=== PATIENT | female | born 1990 | race American Indian/Alaskan Native ===

== ENCOUNTER 2017-08-13 21:31 | Emergency (ER) | payer SELFPAY | END 2017-08-13 22:50 | disposition left against medical advice (07) | LOC: ED 21:31 | DX: R10.9 Unspecified abdominal pain (principal); Z53.21 Procedure and treatment not carried out due to patient leaving prior to being seen by health care provider ==

== ENCOUNTER 2017-10-11 09:38 | Emergency (ER) | payer SELFPAY ==
[2017-10-11 10:34] LABS: Bilirubin,Urine NEG (Negative); Blood,Urine NEG (Negative); Color,Urine Yellow (Yellow); Mucus,Urine FEW /HPF; Protein,Urine <15 mg/dL mg/dL (Negative); Urobilinogen,Urine < 2.0 mg/dL (<2.0); WBC,Urine < 1.0 /HPF (0.0-6.0)
[2017-10-11 11:01] LABS: Basophils % (Auto) 0.6 % (0.0-1.8); Eosinophils # (Auto) 0.1 K/mm3 (0.0-0.4); Eosinophils % (Auto) 1.4 % (0.0-4.3); Hematocrit 41.4 % (30.3-42.9); Hemoglobin 13.7 gm/dl (10.1-14.3); Lymphocytes # (Auto) 1.5 K/mm3 (1.2-5.4); Lymphocytes % (Auto) 25.8 % (13.4-35.0); Mean Corpuscular HGB Conc 33 % (30-34); Mean Corpuscular Hemoglobin 30 pg (28-32); Mean Corpuscular Volume 90 fl (79-97); Monocytes # (Auto) 0.3 K/mm3 (0.0-0.8); Monocytes % (Auto) 5.9 % (0.0-7.3); Platelet Count 148 K/mm3 (140-440); Red Cell Distribution Width 13.1 % (13.2-15.2)
[2017-10-11 11:21] LABS: BUN/Creatinine Ratio 16; Blood Urea Nitrogen 8 mg/dL (7-17); Calcium 9.1 mg/dL (8.4-10.2); Hemolysis Index 53
[2017-10-11] MEDS ORDERED: ZOFRAN ODT ONE (12:59)
[2017-10-11] MEDS ORDERED: ZOFRAN ODT PO ONE (13:02)
--- NOTE | 2017-10-11 13:07 | Ultrasound Report ---
ULTRASOUND OB LESS THAN 14 WEEKS FETUS ULTRASOUND OB TRANSVAGINAL HISTORY: Abdominal pain during . COMPARISON: None. TECHNIQUE: Transabdominal and transvaginal ultrasound with color doppler interrogation. FINDINGS: Uterus: 9 x 5 x 7 cm. No uterine masses appreciated. Normal cervix. Endometrium: An intrauterine gestational sac is identified containing a small pole and yolk sac. heart rate measures 123 beats per minute. Estimated age on ultrasound as 7 weeks, 0 days. Right ovary: Within normal limits. Left ovary: Within normal limits. Probable corpus luteum cyst measuring 1.7 cm. No pelvic fluid or mass is identified. Normal color doppler interrogation. IMPRESSION: Viable single intrauterine as described. No acute abnormality is appreciated.
--- NOTE | 2017-10-11 13:38 | Emergency Department Report ---
HPI - General Chief Complaint: Abdominal Pain Time Seen by Provider: 10/11/17 13:30 - HPI HPI: 27-year-old -[place] female presents to the ED with nausea, vomiting, abdominal discomfort which has since resolved. The patient was diagnosed with a miscarriage in the second week of August, she also missed a cycle in September. Patient did not take any tests at home. She is feeling like she is again.. ED Past Medical Hx - Past Medical History Previous Medical History?: Yes Hx Asthma: Yes - Surgical History Past Surgical History?: Yes Hx Breast Surgery: Yes (reduction) Additional Surgical History: - Social History Smoking Status: Former Smoker Substance Use Type: Alcohol - Medications Home Medications: Home Medications Medication Instructions Recorded Confirmed Last Taken Type Albuterol Sulfate [Proventil Hfa] 6.7 gm IH 4XD #1 hfa.aer.ad 10/11/17 Unknown Rx Doxylamine Succinate/Vit B6 1 each PO QACHS 30 Days #60 10/11/17 Unknown Rx [Carola Byrd 10-10 mg Tablet] tablet. ED Review of Systems ROS: Stated complaint: ABD PAIN Other details as noted in HPI Comment: All other systems reviewed and negative Cardiovascular: denies: dyspnea on exertion Endocrine: denies: excessive sweating Gastrointestinal: nausea, vomiting Physical Exam - Physical Exam Vital Signs: Vital Signs 10/11/17 09:53 Temperature 98.7 F Pulse Rate 84 Respiratory 16 Rate Blood Pressure 122/43 O2 Sat by Pulse 100 Oximetry Physical Exam: - Physical Exam Physical Exam: - General Limitations: No Limitations General appearance: alert, in no apparent distress, obese - Head Head exam: Present: atraumatic, normocephalic - Eye Eye exam: Present: normal appearance - ENT ENT exam: Present: mucous membranes moist - Neck Neck exam: Present: normal inspection - Respiratory Respiratory exam: Present: normal lung sounds bilaterally. Absent: respiratory distress - Cardiovascular Cardiovascular Exam: Present: normal rhythm, tachycardia. Absent: systolic murmur, diastolic murmur, rubs, gallop - GI/Abdominal GI/Abdominal exam: Present: soft, normal bowel sounds - Extremities Exam Extremities exam: Present: normal inspection - Back Exam Back exam: Present: normal inspection - Neurological Exam Neurological exam: Present: alert, oriented X3 - Psychiatric Psychiatric exam: normal affect and mood - Skin Skin exam: Present: warm, dry, intact, normal color. Absent: rash except : Patient refused ED Course Vital Signs 10/11/17 09:53 Temperature 98.7 F Pulse Rate 84 Respiratory 16 Rate Blood Pressure 122/43 O2 Sat by Pulse 100 Oximetry - Reevaluation(s) Reevaluation #1: 10/11/17 19:13 Patient was advised to follow up with [facility], states that she has any vaginal bleeding, severe abdominal pain to come back to ED. Patient states history of asthma and requests a prescription for her inhalers. ED Medical Decision Making - Lab Data Result diagrams: 10/11/17 10:39 10/11/17 10:39 Critical care attestation.: If time is entered above; I have spent that time in minutes in the direct care of this critically ill patient, excluding procedure time. ED Disposition Clinical Impression: Morning sickness Qualifiers: Weeks of gestation: less than 8 weeks Qualified Code(s): Z3A.01 - Less than 8 weeks gestation of Disposition: DC-01 TO HOME OR SELFCARE Is pt being admited?: No Does the pt Need Aspirin: No Condition: Stable Instructions: Morning Sickness (ED), (ED) Prescriptions: Albuterol Sulfate [Proventil Hfa] 6.7 gm IH 4XD #1 hfa.aer.ad Doxylamine Succinate/Vit B6 [Carola Byrd 10-10 mg Tablet] 1 each PO QACHS 30 Days #60 tablet. Referrals: PRIMARY CAREMD [Primary Care Provider] - 3-5 Days LATOYA WILLIS MD [Staff Physician] - 3-5 Days
[2017-10-11 13:53] VITALS: BP 122/54
== END 2017-10-11 13:51 | disposition home or self-care (01) ==
LOC: ED 09:38
DX: O21.8 Other vomiting complicating pregnancy (principal); O26.891 Other specified pregnancy related conditions, first trimester; R10.2 Pelvic and perineal pain; O99.511 Diseases of the respiratory system complicating pregnancy, first trimester; J45.909 Unspecified asthma, uncomplicated; Z3A.01 Less than 8 weeks gestation of pregnancy; Z87.891 Personal history of nicotine dependence; Z88.1 Allergy status to other antibiotic agents; Z88.8 Allergy status to other drugs, medicaments and biological substances
CPT/HCPCS: 36415; 76801; 76817; 80048; 81001; 84702; 85025; 99284; Q0162

== ENCOUNTER 2018-01-16 15:13 | Emergency (ER) | payer MEDICAID ==
[~2018-01-16 15:13] MED LIST: ATIVAN IM ONE
[2018-01-16] MEDS ORDERED: ATIVAN IV ONE ×2 (15:15→15:40)
[2018-01-16] MEDS ORDERED: KEPPRA 1,000 MG/NS 0.75% 100ML 1,000 MG/100 ML BAG IV ONE ×2 (15:31→16:03)
[2018-01-16] MEDS ORDERED: ATIVAN ONE ×4 (15:31→15:42)
[2018-01-16] MEDS ORDERED: VERSED IV NR (15:43)
[2018-01-16] MEDS ORDERED: AMIDATE IV ONE ×2 (15:45→16:05)
[2018-01-16] MEDS ORDERED: ZEMURON IV ONE ×2 (15:45→16:05)
[2018-01-16] MEDS ORDERED: VERSED IV ONE ×2 (15:45→18:20)
[2018-01-16] MEDS ORDERED: MAGNESIUM SULFATE 4GM/100ML 4 GM/100 ML BAG IV ONE (16:00)
[2018-01-16] MEDS ORDERED: MAGNESIUM SULFATE 40GM/1000ML 40 GM/1,000 ML BAG IV SCH (16:00)
[2018-01-16] MEDS ORDERED: ARTIFICIAL TEARS OPHTH OINT OU PRN (16:05)
[2018-01-16] MEDS ORDERED: ATIVAN IV PRN (16:05)
[2018-01-16] MEDS ORDERED: VASELINE LIP THERAPY TP PRN (16:05)
--- NOTE | 2018-01-16 16:16 | Emergency Department Report ---
ED General Adult HPI - General Chief complaint: Seizure Stated complaint: SEIZURE Time Seen by Provider: 01/16/18 15:59 Source: patient, family, RN notes reviewed, old records reviewed Limitations: Altered Mental Status - History of Present Illness Initial comments: This is a 27-year-old female who is unknown to this provider previously. Patient is approximately 20 weeks and 5 days . History is obtained by speaking to the patient's , who is not initially present during her initial resuscitation, and by review of her old medical records. Patient presented to the ER with a complaint of seizure. She then had a seizure in the triage snow. She was immediately brought back. She was placed in room 3 in the adult emergency room, and was placed on oxygen, and her head was turned to the left. She was actively suctioned, and IV access was established in the right external jugular vein. Patient was given multiple rounds of Ativan to abort her seizure. Patient continued to seize, continued to have left eye deviation, and generalized body shaking. She was also given 1 g of Keppra. Patient continued to seize, and had stereotypical myoclonic activity, and was in the status epilepticus pathway. Given this, the patient was intubated for airway protection. After this, an emergent CT scan of the brain is ordered to exclude intracranial hemorrhage. Patient loaded with 4 g of magnesium sulfate, and started empirically on a magnesium sulfate drip. I then discussed the case with the patient's , and he gave verbal consent for treatment is appropriate, and also authorized transfer to an appropriate facility but has continuous EEG monitoring/neuro critical care. I contacted our [facility] physician on-call, Dr. Hampton, who recommended magnesium sulfate, and supportive care and transfer for definitive management. I then contacted [facility], and discussed the case with neuro critical care physician Dr. Yadav, who accepted the patient as a transfer. She recommended an additional 1 g of Keppra. -: unknown Radiation: other (see hpi) Quality: other (see hpi) Consistency: other (see hpi) Improves with: other (see hpi) Worsens with: other (see hpi) Associated Symptoms: other (see hpi) - Related Data Home Medications Medication Instructions Recorded Confirmed Last Taken Albuterol Sulfate [Ventolin HFA] 1 - 2 puff IH Q6H PRN 01/16/18 01/16/18 Unknown Ferrous Sulfate [Iron] 325 mg PO DAILY 01/16/18 01/16/18 Unknown Metoclopramide [Reglan] 10 mg PO ACHS 01/16/18 01/16/18 Unknown Ondansetron [Zofran TAB] 4 mg PO Q8HR PRN 01/16/18 01/16/18 Unknown Allergies Allergy/AdvReac Type Severity Reaction Status Date / Time ceftriaxone [From Rocephin] Allergy Swelling Verified 01/16/18 15:24 morphine Allergy Shortness Verified 01/16/18 15:34 of Breath turbutaline Allergy Shortness Uncoded 10/11/17 09:53 of Breath ED Review of Systems ROS: Stated complaint: SEIZURE Other details as noted in HPI Comment: Unobtainable due to pts medical conditions ED Past Medical Hx - Past Medical History Hx Asthma: Yes - Surgical History Hx Breast Surgery: Yes (reduction) Additional Surgical History: - Social History Smoking Status: Never Smoker Substance Use Type: None - Medications Home Medications: Home Medications Medication Instructions Recorded Confirmed Last Taken Type Albuterol Sulfate [Ventolin HFA] 1 - 2 puff IH Q6H PRN 01/16/18 01/16/18 Unknown History Ferrous Sulfate [Iron] 325 mg PO DAILY 01/16/18 01/16/18 Unknown History Metoclopramide [Reglan] 10 mg PO ACHS 01/16/18 01/16/18 Unknown History Ondansetron [Zofran TAB] 4 mg PO Q8HR PRN 01/16/18 01/16/18 Unknown History ED Physical Exam - General Limitations: Altered Mental Status General appearance: obtunded - Head Head exam: Present: atraumatic, normocephalic - ENT ENT exam: Present: normal exam, normal orophraynx, TM's normal bilaterally, normal external ear exam - Neck Neck exam: Present: normal inspection, full ROM. Absent: tenderness, meningismus - Respiratory Respiratory exam: Present: normal lung sounds bilaterally. Absent: respiratory distress, wheezes, rales, rhonchi, stridor - Cardiovascular Cardiovascular Exam: Present: normal rhythm, tachycardia, normal heart sounds - GI/Abdominal GI/Abdominal exam: Present: soft, normal bowel sounds, other (there is no abdominal tenderness. The uterus is nontender. It is consistent for dates.). Absent: distended, tenderness, rebound, rigid, pulsatile mass - External exam: Present: normal external exam, other (escorted by nurse Gisselle Workman) - Extremities Exam Extremities exam: Present: normal inspection, normal capillary refill. Absent: tenderness, pedal edema, joint swelling, calf tenderness - Back Exam Back exam: Present: normal inspection, full ROM. Absent: tenderness, CVA tenderness (R), paraspinal tenderness, vertebral tenderness - Neurological Exam Neurological exam: Present: altered, other (prior to intubation, the patient is moving 4 extremities, and making jerking motions and stereotyped sounds. Her eyes have a tonic left-sided gaze preference.) - Psychiatric Psychiatric exam: Present: anxious - Skin Skin exam: Present: dry ED Course Vital Signs 01/16/18 01/16/18 15:25 16:05 Temperature 99.2 F Pulse Rate 78 56 L Respiratory 18 Rate Blood Pressure 114/74 126/78 O2 Sat by Pulse 100 100 Oximetry - EJ/Peripheral Line Neck R Time Out Performed: Yes Indications: multiple IV sites needed Skin Cleansed in Sterile Fashion: Yes Size: 20 Dressing Placed: Tegaderm Patient Tolerated Procedure: other Additional Comments: Hematoma was formed, and resolved with pressure. - Intubation Time Out Performed: Yes Sedative: Etomidate Mg Given: 20 Paralytic: Rocuronium Mg Given: 100 Laryngoscope: fiberoptic video scope Size: 3 ET Tube Size: 7.5 Tube Secured Depth (cm): 23 Tube Secured Location: teeth Tube Placement Confirmation: visualized tube passing t, equal breath sounds bilat, no breath sounds over epi, confirmation by capnometr Patient Tolerated Procedure: well Intubation Complications: none Additional Comments: Patient is placed on a nasal cannula at 15 L/m. She receives [id number] ventilation. Towel rolls are placed underneath the patient's back, and the ear is aligned to the sternal notch. Using video laryngoscopy, a 7.5 endotracheal tube was introduced into the oropharynx and hypopharynx with direct visualization of the true vocal cords. The tube was passed with ease without difficulty, and tube placement is confirmed by direct visualization, capnography, is ago exam, condensation on the endotracheal tube. Post intubation x-ray demonstrates placement of the tube at the level of the clavicles, the tube was subsequently advanced 3 cm. ED Medical Decision Making - Lab Data Result diagrams: 01/16/18 16:25 01/16/18 16:25 Vital Signs 01/16/18 01/16/18 15:25 16:05 Temperature 99.2 F Pulse Rate 78 56 L Respiratory 18 Rate Blood Pressure 114/74 126/78 O2 Sat by Pulse 100 100 Oximetry Lab Results 01/16/18 01/16/18 01/16/18 Range/Units 16:25 16:25 16:25 WBC 8.0 (4.5-11.0) K/mm3 RBC 3.81 (3.65-5.03) M/mm3 Hgb 11.9 (10.1-14.3) gm/dl Hct 34.8 (30.3-42.9) % MCV 91 (79-97) fl MCH 31 (28-32) pg MCHC 34 (30-34) % RDW 13.1 L (13.2-15.2) % Plt Count 168 (140-440) K/mm3 Lymph % (Auto) 27.1 (13.4-35.0) % [place] % (Auto) 6.2 (0.0-7.3) % Eos % (Auto) 1.5 (0.0-4.3) % Baso % (Auto) 0.4 (0.0-1.8) % Lymph # 2.2 (1.2-5.4) K/mm3 Williamson # 0.5 (0.0-0.8) K/mm3 Eos # 0.1 (0.0-0.4) K/mm3 Baso # 0.0 (0.0-0.1) K/mm3 Seg Neutrophils % 64.8 (40.0-70.0) % Seg Neutrophils # 5.2 (1.8-7.7) K/mm3 Sodium 136 L (137-145) mmol/L Potassium 3.0 L (3.6-5.0) mmol/L Chloride 101.0 (98-107) mmol/L Carbon Dioxide 21 L (22-30) mmol/L Anion Gap 17 mmol/L BUN 4 L (7-17) mg/dL Creatinine 0.4 L (0.7-1.2) mg/dL Estimated GFR > 60 ml/min BUN/Creatinine Ratio 10 % Glucose 88 (65-100) mg/dL POC Glucose (70-105) Calcium 8.4 (8.4-10.2) mg/dL Total Bilirubin 0.30 (0.1-1.2) mg/dL AST 14 (5-40) units/L ALT 6 L (7-56) units/L Alkaline Phosphatase 64 (35-129) units/L Total Protein 6.5 (6.3-8.2) g/dL Albumin 3.6 L (3.9-5) g/dL Albumin/Globulin Ratio 1.2 % HCG, Quant (0-4) mIU/mL Urine Color (Yellow) Urine Turbidity (Clear) Urine pH (5.0-7.0) Ur Specific [place] (1.003-1.030) Urine Protein (Negative) mg/dL Urine Glucose (UA) (Negative) mg/dL Urine Ketones (Negative) mg/dL Urine Blood (Negative) Urine Nitrite (Negative) Urine Bilirubin (Negative) Urine Urobilinogen (<2.0) mg/dL Ur Leukocyte Esterase (Negative) Urine WBC (Auto) (0.0-6.0) /HPF Urine RBC (Auto) (0.0-6.0) /HPF U Epithel Cells (Auto) (0-13.0) /HPF Urine Bacteria (Auto) (Negative) /HPF Urine Mucus /HPF Urine HCG, Qual (Negative) Salicylates < 0.3 L (2.8-20.0) mg/dL Urine Opiates Screen Urine Methadone Screen Acetaminophen (10.0-30.0) ug/mL Ur Barbiturates Screen Ur Phencyclidine Scrn Ur Amphetamines Screen U Benzodiazepines Scrn Urine Cocaine Screen U Marijuana (THC) Screen Drugs of Abuse Note Plasma/Serum Alcohol (0-0.07) % 01/16/18 01/16/18 01/16/18 Range/Units 16:25 16:25 16:25 WBC (4.5-11.0) K/mm3 RBC (3.65-5.03) M/mm3 Hgb (10.1-14.3) gm/dl Hct (30.3-42.9) % MCV (79-97) fl MCH (28-32) pg MCHC (30-34) % RDW (13.2-15.2) % Plt Count (140-440) K/mm3 Lymph % (Auto) (13.4-35.0) % Williamson % (Auto) (0.0-7.3) % Eos % (Auto) (0.0-4.3) % Baso % (Auto) (0.0-1.8) % Lymph # (1.2-5.4) K/mm3 Williamson # (0.0-0.8) K/mm3 Eos # (0.0-0.4) K/mm3 Baso # (0.0-0.1) K/mm3 Seg Neutrophils % (40.0-70.0) % Seg Neutrophils # (1.8-7.7) K/mm3 Sodium (137-145) mmol/L Potassium (3.6-5.0) mmol/L Chloride (98-107) mmol/L Carbon Dioxide (22-30) mmol/L Anion Gap mmol/L BUN (7-17) mg/dL Creatinine (0.7-1.2) mg/dL Estimated GFR ml/min BUN/Creatinine Ratio % Glucose (65-100) mg/dL POC Glucose (70-105) Calcium (8.4-10.2) mg/dL Total Bilirubin (0.1-1.2) mg/dL AST (5-40) units/L ALT (7-56) units/L Alkaline Phosphatase (35-129) units/L Total Protein (6.3-8.2) g/dL Albumin (3.9-5) g/dL Albumin/Globulin Ratio % HCG, Quant 9350 H (0-4) mIU/mL Urine Color (Yellow) Urine Turbidity (Clear) Urine pH (5.0-7.0) Ur Specific [place] (1.003-1.030) Urine Protein (Negative) mg/dL Urine Glucose (UA) (Negative) mg/dL Urine Ketones (Negative) mg/dL Urine Blood (Negative) Urine Nitrite (Negative) Urine Bilirubin (Negative) Urine Urobilinogen (<2.0) mg/dL Ur Leukocyte Esterase (Negative) Urine WBC (Auto) (0.0-6.0) /HPF Urine RBC (Auto) (0.0-6.0) /HPF U Epithel Cells (Auto) (0-13.0) /HPF Urine Bacteria (Auto) (Negative) /HPF Urine Mucus /HPF Urine HCG, Qual (Negative) Salicylates (2.8-20.0) mg/dL Urine Opiates Screen Urine Methadone Screen Acetaminophen < 5.0 L (10.0-30.0) ug/mL Ur Barbiturates Screen Ur Phencyclidine Scrn Ur Amphetamines Screen U Benzodiazepines Scrn Urine Cocaine Screen U Marijuana (THC) Screen Drugs of Abuse Note Plasma/Serum Alcohol < 0.01 (0-0.07) % 01/16/18 01/16/18 01/16/18 Range/Units 16:34 16:34 16:52 WBC (4.5-11.0) K/mm3 RBC (3.65-5.03) M/mm3 Hgb (10.1-14.3) gm/dl Hct (30.3-42.9) % MCV (79-97) fl MCH (28-32) pg MCHC (30-34) % RDW (13.2-15.2) % Plt Count (140-440) K/mm3 Lymph % (Auto) (13.4-35.0) % Williamson % (Auto) (0.0-7.3) % Eos % (Auto) (0.0-4.3) % Baso % (Auto) (0.0-1.8) % Lymph # (1.2-5.4) K/mm3 [place] # (0.0-0.8) K/mm3 Eos # (0.0-0.4) K/mm3 Baso # (0.0-0.1) K/mm3 Seg Neutrophils % (40.0-70.0) % Seg Neutrophils # (1.8-7.7) K/mm3 Sodium (137-145) mmol/L Potassium (3.6-5.0) mmol/L Chloride (98-107) mmol/L Carbon Dioxide (22-30) mmol/L Anion Gap mmol/L BUN (7-17) mg/dL Creatinine (0.7-1.2) mg/dL Estimated GFR ml/min BUN/Creatinine Ratio % Glucose (65-100) mg/dL POC Glucose 85 (70-105) Calcium (8.4-10.2) mg/dL Total Bilirubin (0.1-1.2) mg/dL AST (5-40) units/L ALT (7-56) units/L Alkaline Phosphatase (35-129) units/L Total Protein (6.3-8.2) g/dL Albumin (3.9-5) g/dL Albumin/Globulin Ratio % HCG, Quant (0-4) mIU/mL Urine Color Yellow (Yellow) Urine Turbidity Clear (Clear) Urine pH 6.0 (5.0-7.0) Ur Specific [place] 1.020 (1.003-1.030) Urine Protein 30 mg/dl (Negative) mg/dL Urine Glucose (UA) Neg (Negative) mg/dL Urine Ketones 80 (Negative) mg/dL Urine Blood Neg (Negative) Urine Nitrite Neg (Negative) Urine Bilirubin Neg (Negative) Urine Urobilinogen < 2.0 (<2.0) mg/dL Ur Leukocyte Esterase Neg (Negative) Urine WBC (Auto) 1.0 (0.0-6.0) /HPF Urine RBC (Auto) 2.0 (0.0-6.0) /HPF U Epithel Cells (Auto) 3.0 (0-13.0) /HPF Urine Bacteria (Auto) 1+ (Negative) /HPF Urine Mucus 3+ /HPF Urine HCG, Qual Positive A (Negative) Salicylates (2.8-20.0) mg/dL Urine Opiates Screen Presumptive negative Urine Methadone Screen Presumptive negative Acetaminophen (10.0-30.0) ug/mL Ur Barbiturates Screen Presumptive negative Ur Phencyclidine Scrn Presumptive negative Ur Amphetamines Screen Presumptive negative U Benzodiazepines Scrn Presumptive positive Urine Cocaine Screen Presumptive negative U Marijuana (THC) Screen Presumptive positive Drugs of Abuse Note Disclamer Plasma/Serum Alcohol (0-0.07) % - Radiology Data Radiology results: report reviewed, image reviewed Noncontrast CT scan of the brain is negative for acute disease. X-ray of the chest is negative for acute disease. Critical Care Time: Yes Critical care time in (mins) excluding proc time.: 60 Critical care attestation.: If time is entered above; I have spent that time in minutes in the direct care of this critically ill patient, excluding procedure time. ED Disposition Clinical Impression: , Status epilepticus, Hypokalemia Disposition: DC/ [facility] IP Is pt being admited?: No Does the pt Need Aspirin: No Condition: Critical Referrals: PRIMARY CARE, [Primary Care Provider] - 3-5 Days
--- NOTE | 2018-01-16 16:21 | Event Note ---
Date: 01/16/18 s/w Dr. Ibrahim, this is a patient with persistent seizures, intubated , ? eclampsia. Agree with MGSo4 4gm bolus, may give total 6gm bolus and 2gm and transfer to a facility to manage her seizures
--- NOTE | 2018-01-16 16:32 | XRay Report ---
FINAL REPORT EXAM: XR CHEST 1V AP HISTORY: s/p intubation TECHNIQUE: Frontal portable examination of the chest PRIORS: None FINDINGS: There is no visible pulmonary consolidation, pleural effusion, or pneumothorax. Cardiac silhouette size is normal without vascular congestion. No visible acute displaced fracture in the regional skeleton. Nonspecific prominence of gas, and possibly distention, in the visible portion of the stomach. IMPRESSION: No acute cardiopulmonary disease in the visualized chest An endotracheal tube is in place in the region of the trachea with distal tip projecting approximately 4.0 cm above the region of the kirsten. Distal tip is projected at the level of the thoracic inlet.
[2018-01-16 16:44] LABS: Basophils % (Auto) 0.4 % (0.0-1.8); Eosinophils # (Auto) 0.1 K/mm3 (0.0-0.4); Eosinophils % (Auto) 1.5 % (0.0-4.3); Hematocrit 34.8 % (30.3-42.9); Hemoglobin 11.9 gm/dl (10.1-14.3); Lymphocytes # (Auto) 2.2 K/mm3 (1.2-5.4); Lymphocytes % (Auto) 27.1 % (13.4-35.0); Mean Corpuscular HGB Conc 34 % (30-34); Mean Corpuscular Hemoglobin 31 pg (28-32); Mean Corpuscular Volume 91 fl (79-97); Monocytes # (Auto) 0.5 K/mm3 (0.0-0.8); Monocytes % (Auto) 6.2 % (0.0-7.3); Platelet Count 168 K/mm3 (140-440); Red Blood Count 3.81 M/mm3 (3.65-5.03); Red Cell Distribution Width 13.1 % (13.2-15.2)
[2018-01-16] MEDS ORDERED: fentaNYL DRIP Premix 2,000 MCG/100 ML BAG IV SCH (17:00)
[2018-01-16] MEDS ORDERED: NACL 0.9% 500 ML IV SCH (17:00)
[2018-01-16 17:03] LABS: Alanine Aminotransferase 6 units/L (7-56); Albumin 3.6 g/dL (3.9-5); BUN/Creatinine Ratio 10; Blood Urea Nitrogen 4 mg/dL (7-17); Calcium 8.4 mg/dL (8.4-10.2); Hemolysis Index 19
[2018-01-16 17:17] LABS: Bacteria,Urine 1+ /HPF (Negative); Bilirubin,Urine NEG (Negative); Blood,Urine NEG (Negative); Color,Urine Yellow (Yellow); HCG Qualitative,Urine Positive (Negative); Mucus,Urine 3+ /HPF; Urobilinogen,Urine < 2.0 mg/dL (<2.0)
--- NOTE | 2018-01-16 17:22 | Cat Scan Report ---
FINAL REPORT EXAM: CT HEAD/BRAIN WO CON HISTORY: Seizure TECHNIQUE: CT examination of the head without IV contrast PRIORS: None. FINDINGS: Endotracheal tube in place. Nonspecific small fluid level left maxillary sinus. Bone windows demonstrate no acute fracture. There is ventricular and sulcal prominence possibly from mild superior cerebrocortical atrophy. The brain contains no mass, mass effect, hemorrhage, or acute infarct. There is no extra-axial intracranial bleed, brain bleed, or midline shift. IMPRESSION: No acute CVA, intracranial bleed, or brain mass Left maxillary sinus small fluid level may be related intubation. Differential includes acute left maxillary sinusitis
[2018-01-16] MEDS: KEPPRA 1,000 MG/NS 0.75% 100ML 1,000 MG/100 ML BAG IV ONE ×2 (17:23→18:12)
[2018-01-16 17:25] LABS: Amphetamine Screen,Urine PRESUMPTIVE NEGATIVE; Cocaine Screen,Urine PRESUMPTIVE NEGATIVE; Methadone Screen,Urine PRESUMPTIVE NEGATIVE; Opiate Screen,Urine PRESUMPTIVE NEGATIVE
[2018-01-16 17:41] LABS: Benzodiazepines Screen,Urine PRESUMPTIVE POSITIVE; Cannabinoid Screen,Urine PRESUMPTIVE POSITIVE
[2018-01-16] MEDS: KCL 10MEQ/100ML 10 MEQ/100 ML BAG IV SCH ×3 (19:06→21:11)
[2018-01-16] MEDS ORDERED: ATIVAN 100 MG in NACL 0.9% 50 ML, VIAFLEX EMPTY CONTAINER 0 ML IV SCH (20:00)
[2018-01-16 21:16] VITALS: BP 95/50
== END 2018-01-16 21:18 | disposition short-term general hospital (02) ==
LOC: ED 15:13
DX: O99.352 Diseases of the nervous system complicating pregnancy, second trimester (principal); G40.901 Epilepsy, unspecified, not intractable, with status epilepticus; O99.512 Diseases of the respiratory system complicating pregnancy, second trimester; J45.909 Unspecified asthma, uncomplicated; O26.892 Other specified pregnancy related conditions, second trimester; E87.6 Hypokalemia; Z88.1 Allergy status to other antibiotic agents; Z88.6 Allergy status to analgesic agent; Z88.5 Allergy status to narcotic agent; Z3A.20 20 weeks gestation of pregnancy
CPT/HCPCS: 31500; 36415; 36569; 70450; 71045; 80053; 80307; 81001; 81025; 82803; 82962; 84702; 85025; 87070; 87205; 93005; 93010; 96365; 96366; 96368; 96372; 96375; 96376; 99291; G0480; J1953; J2060; J2250; J3010; J3475; J3480; 80320; 94002

== ENCOUNTER 2018-01-20 10:07 | Emergency (ER) | payer MEDICAID ==
[2018-01-20] MEDS ORDERED: ATIVAN IV ONE ×3 (10:09→12:48)
[2018-01-20] MEDS ORDERED: MAGNESIUM SULFATE 40GM/1000ML 40 GM/1,000 ML BAG IV ONE (10:10)
[2018-01-20] MEDS ORDERED: KEPPRA 1,000 MG/NS 0.75% 100ML 1,000 MG/100 ML BAG IV ONE (10:16)
[2018-01-20] MEDS ORDERED: MAGNESIUM SULFATE 4GM/100ML 4 GM/100 ML BAG IV SCH (11:00)
[2018-01-20 11:22] LABS: Basophils % (Auto) 0.2 % (0.0-1.8); Eosinophils # (Auto) 0.1 K/mm3 (0.0-0.4); Eosinophils % (Auto) 1.1 % (0.0-4.3); Hematocrit 31.7 % (30.3-42.9); Lymphocytes % (Auto) 17.9 % (13.4-35.0); Mean Corpuscular HGB Conc 35 % (30-34); Mean Corpuscular Hemoglobin 32 pg (28-32); Mean Corpuscular Volume 91 fl (79-97); Monocytes # (Auto) 0.3 K/mm3 (0.0-0.8); Monocytes % (Auto) 5.7 % (0.0-7.3); Platelet Count 154 K/mm3 (140-440); Red Blood Count 3.48 M/mm3 (3.65-5.03); Red Cell Distribution Width 13.2 % (13.2-15.2)
[2018-01-20 11:29] LABS: Albumin 3.4 g/dL (3.9-5); BUN/Creatinine Ratio 12; Blood Urea Nitrogen 6 mg/dL (7-17); Calcium 8.8 mg/dL (8.4-10.2); Hemolysis Index 1
[2018-01-20 11:37] LABS: Alanine Aminotransferase < 5 units/L (7-56)
[2018-01-20 11:59] LABS: INR 1.02 (0.87-1.13)
[2018-01-20 12:55] LABS: Bacteria,Urine 1+ /HPF (Negative); Bilirubin,Urine NEG (Negative); Blood,Urine NEG (Negative); Color,Urine Yellow (Yellow); Mucus,Urine 2+ /HPF; Protein,Urine <15 mg/dL mg/dL (Negative); Urobilinogen,Urine < 2.0 mg/dL (<2.0)
[2018-01-20 13:26] LABS: Amphetamine Screen,Urine PRESUMPTIVE NEGATIVE; Cocaine Screen,Urine PRESUMPTIVE NEGATIVE; Methadone Screen,Urine PRESUMPTIVE NEGATIVE; Opiate Screen,Urine PRESUMPTIVE NEGATIVE
[2018-01-20 13:39] LABS: Benzodiazepines Screen,Urine PRESUMPTIVE POSITIVE; Cannabinoid Screen,Urine PRESUMPTIVE POSITIVE
--- NOTE | 2018-01-20 14:20 | Emergency Department Report ---
ED General Adult HPI - General Chief complaint: Seizure Stated complaint: SEIZURE Time Seen by Provider: 01/20/18 10:08 Source: EMS Mode of arrival: Stretcher Limitations: Physical Limitation - History of Present Illness Initial comments: Patient presents emergency department for seizure-like activity. Per EMS and the patient's significant other she was just discharged from [facility] ICU yesterday. Patient is somnolent on initial presentation but is able to answer questions and states that she has not any pain -: Sudden Radiation: non-radiation Severity scale (0 -10): 0 Improves with: none Worsens with: none Associated Symptoms: denies other symptoms Treatments Prior to Arrival: none - Related Data Home Medications Medication Instructions Recorded Confirmed Last Taken Albuterol Sulfate [Ventolin HFA] 1 - 2 puff IH Q6H PRN 01/16/18 01/20/18 Unknown Ferrous Sulfate [Iron] 325 mg PO DAILY 01/16/18 01/20/18 Unknown Ondansetron [Zofran TAB] 4 mg PO Q8HR PRN 01/16/18 01/20/18 Unknown levETIRAcetam [Keppra TAB] 500 mg PO QDAY 01/20/18 01/20/18 Unknown Allergies Allergy/AdvReac Type Severity Reaction Status Date / Time ceftriaxone [From Rocephin] Allergy Swelling Verified 01/16/18 15:24 morphine Allergy Shortness Verified 01/16/18 15:34 of Breath turbutaline Allergy Shortness Uncoded 10/11/17 09:53 of Breath ED Review of Systems ROS: Stated complaint: SEIZURE Other details as noted in HPI Comment: Unobtainable due to pts medical conditions ED Past Medical Hx - Past Medical History Hx Asthma: Yes - Surgical History Hx Breast Surgery: Yes (reduction) Additional Surgical History: - Social History Smoking Status: Never Smoker Substance Use Type: None - Medications Home Medications: Home Medications Medication Instructions Recorded Confirmed Last Taken Type Albuterol Sulfate [Ventolin HFA] 1 - 2 puff IH Q6H PRN 01/16/18 01/20/18 Unknown History Ferrous Sulfate [Iron] 325 mg PO DAILY 01/16/18 01/20/18 Unknown History Ondansetron [Zofran TAB] 4 mg PO Q8HR PRN 01/16/18 01/20/18 Unknown History levETIRAcetam [Keppra TAB] 500 mg PO QDAY 01/20/18 01/20/18 Unknown History ED Physical Exam - General Limitations: Physical Limitation General appearance: postictal - Head Head exam: Present: atraumatic, normocephalic - Eye Eye exam: Present: normal appearance, PERRL. Absent: scleral icterus, conjunctival injection Pupils: Present: normal accommodation - ENT ENT exam: Present: mucous membranes moist - Neck Neck exam: Present: normal inspection - Respiratory Respiratory exam: Present: normal lung sounds bilaterally. Absent: respiratory distress, wheezes, rales - Cardiovascular Cardiovascular Exam: Present: regular rate, normal rhythm. Absent: systolic murmur, diastolic murmur, rubs, gallop - GI/Abdominal GI/Abdominal exam: Present: soft, normal bowel sounds. Absent: distended, tenderness - Extremities Exam Extremities exam: Present: normal inspection - Back Exam Back exam: Present: normal inspection - Neurological Exam Neurological exam: Present: other (not able to assess due to the patient being postictal) - Psychiatric Psychiatric exam: Present: other (not able to assess due to the patient being postictal) - Skin Skin exam: Present: warm, dry, intact, normal color. Absent: rash ED Course Vital Signs 01/20/18 01/20/18 01/20/18 09:55 10:00 10:09 Temperature 98.1 F Pulse Rate 79 82 78 Respiratory 16 21 20 Rate Blood Pressure 106/65 106/65 111/61 O2 Sat by Pulse 100 100 100 Oximetry 01/20/18 01/20/18 01/20/18 10:15 10:31 10:45 Temperature Pulse Rate 82 77 76 Respiratory 10 L 16 16 Rate Blood Pressure 122/68 93/55 103/61 O2 Sat by Pulse 100 100 100 Oximetry 01/20/18 01/20/18 01/20/18 11:00 11:15 11:30 Temperature Pulse Rate 75 78 81 Respiratory 30 H 13 17 Rate Blood Pressure 104/57 99/53 101/53 O2 Sat by Pulse 100 100 100 Oximetry 01/20/18 01/20/18 01/20/18 11:38 11:45 12:00 Temperature Pulse Rate 88 82 Respiratory 16 27 H 26 H Rate Blood Pressure 97/59 97/51 O2 Sat by Pulse 100 99 Oximetry 01/20/18 01/20/18 01/20/18 12:15 12:30 12:45 Temperature Pulse Rate 84 90 85 Respiratory 17 21 16 Rate Blood Pressure 95/45 103/62 101/66 O2 Sat by Pulse 100 99 99 Oximetry 01/20/18 01/20/18 01/20/18 13:00 13:15 13:30 Temperature Pulse Rate 87 88 82 Respiratory 21 26 H 26 H Rate Blood Pressure 100/58 99/61 102/58 O2 Sat by Pulse 100 100 Oximetry ED Medical Decision Making - Lab Data Result diagrams: 01/20/18 10:44 01/20/18 10:44 - EKG Data -: EKG Interpreted by Me EKG shows normal: sinus rhythm Rate: normal - Medical Decision Making Patient had a total of 6 episodes of seizure-like activity in the emergency department that were tonic-clonic in nature Patient received multiple doses Ativan and a thousand milligrams of Keppra IV Seizure activity to stop Discharge summary requested from [facility] Phone call placed to transfer line at [facility] and patient was discussed through neurology and [facility]. At their facility while the patient was having seizure- like activity the EEG did not show seizures and at this time to fill that the patient's activity is likely secondary to PTSD and stress secondary to . Patient was seen by psychiatry at [facility]. At this time to fill the patient is not a candidate for transfer and she'll follow up with outpatient psychiatry This was discussed with the patient and her fianc. Critical care attestation.: If time is entered above; I have spent that time in minutes in the direct care of this critically ill patient, excluding procedure time. ED Disposition Clinical Impression: Seizure-like activity Disposition: DC-01 TO HOME OR SELFCARE Is pt being admited?: No Does the pt Need Aspirin: No Condition: Stable Instructions: Non-epileptic Seizures (ED) Additional Instructions: Return if worse Referrals: PRIMARY CAREMD [Primary Care Provider] - 3-5 Days [facility] [Outside] - 3-5 Days [facility] [Outside] - 3-5 Days [facility] [Other] - 3-5 Days Time of Disposition: 15:02
[2018-01-20 15:44] VITALS: BP 82/45
== END 2018-01-20 15:44 | disposition home or self-care (01) ==
LOC: ED 10:07
DX: R56.9 Unspecified convulsions (principal); J45.909 Unspecified asthma, uncomplicated; Z88.5 Allergy status to narcotic agent
CPT/HCPCS: 36415; 80053; 80307; 81001; 82962; 83735; 84100; 85025; 85610; 85730; 93005; 93010; 96365; 96375; 96376; 99284; J2060; J3475

== ENCOUNTER 2018-01-21 12:26 | Emergency (ER) | payer MEDICAID | END 2018-01-21 12:27 | disposition left against medical advice (07) | LOC: ED 12:26 | DX: R56.9 Unspecified convulsions (principal); Z53.21 Procedure and treatment not carried out due to patient leaving prior to being seen by health care provider ==

== ENCOUNTER 2018-03-30 15:49 | Inpatient (IN) | payer MEDICAID ==
[~2018-03-30 15:49] MED LIST changes: +AMIDATE IV ONE; -ATIVAN IM ONE; +VERSED IV ONE; +ZEMURON IV ONE
[2018-03-30] MEDS ORDERED: LACTATED RINGERS 1,000 ML ONE (16:01)
[2018-03-30] MEDS ORDERED: VERSED IV ONE ×2 (16:09→17:00)
[2018-03-30] MEDS ORDERED: COLACE PO PRN (16:20)
[2018-03-30] MEDS ORDERED: ZOFRAN IV PRN (16:20)
[2018-03-30] MEDS ORDERED: TYLENOL PO PRN (16:20)
--- NOTE | 2018-03-30 16:34 | Consultation ---
History of Present Illness Consult date: 03/30/18 Requesting physician: ALEXIA BLACK Reason for consult: other (Status Asthmaticus; Acute Respiratory Failure) History of present illness: PULMONARY/CCM CONSULT NOTE (Full dictation # [id number]) Please see dictated notes for full details Medications and Allergies Allergies Allergy/AdvReac Type Severity Reaction Status Date / Time ceftriaxone [From Rocephin] Allergy Swelling Verified 01/16/18 15:24 morphine Allergy Shortness Verified 01/16/18 15:34 of Breath turbutaline Allergy Shortness Uncoded 10/11/17 09:53 of Breath Home Medications Medication Instructions Recorded Confirmed Last Taken Type Albuterol Sulfate [Ventolin HFA] 1 - 2 puff IH Q6H PRN 01/16/18 01/20/18 Unknown History Ferrous Sulfate [Iron] 325 mg PO DAILY 01/16/18 01/20/18 Unknown History Ondansetron [Zofran TAB] 4 mg PO Q8HR PRN 01/16/18 01/20/18 Unknown History levETIRAcetam [Keppra TAB] 500 mg PO QDAY 01/20/18 01/20/18 Unknown History Active Meds: Active Medications Acetaminophen (Tylenol) 650 mg PO Q4H PRN PRN Reason: Pain MILD(1-3)/Fever >100.5/TAFOYA Docusate Sodium (Colace) 100 mg PO Q12H PRN PRN Reason: Constipation Levetiracetam 750 mg/ Sodium (Chloride) 107.5 mls @ 400 mls/hr IV Q12HR MOON Clindamycin HCl (Cleocin 900 Mg/50 Ml) 900 mg in 50 mls @ 100 mls/hr IV Q8HR MOON; Protocol Stop: 04/01/18 14:29 Lactated Ringer's (Lactated Ringers) 1,000 mls @ 125 mls/hr IV DIRECT MOON Midazolam HCl (Versed) 2 mg IV ONCE ONE Stop: 03/30/18 16:19 Multivitamins/Iron/Calcium ( Vitamin) 1 each PO QDAY MOON Ondansetron HCl (Zofran) 4 mg IV Q6H PRN PRN Reason: Nausea And Vomiting Physical Examination Vital signs: Vital Signs Pulse Ox 62 L 03/30/18 15:55
[2018-03-30] MEDS ORDERED: LACTATED RINGERS 1,000 ML IV SCH ×2 (17:00→19:00)
--- NOTE | 2018-03-30 17:15 | History and Physical Report ---
History of Present Illness Date of admission: 03/30/18 15:50 Chief complaint: status epilepticus History of present illness: 30yo at 31 4/7 weeks, history previous c/section x 3 and history of epilepsy. She was transferred by EMS to L&D due to status epilepticus. She presented to [facility] clinic today stating she had 2 previous seizures. Upon my entering the room the patient states she had "a weird taste in her mouth and was about to seize". EMS was called and she was transported to L&D. During the interim period, 6 seizures were observed by clinic staff. On L&D Dr. Gloria initiated a central line, administered IVF and Versed 2mg IV was given. The patient has maintaned her oxygen saturation at 100% on O2 nasal canula. heart tones were confirmed in the 140-150s through out observation so the decision was made to transfer mother to ICU. She continues to seize but the time between seizures has lengthened. She has maintained consciousness during the seizures. Her has been complicated by an ICU admission in February at [facility] where she was intubated due to seizures. She has missed the last month of clinic visits. She has been followed by [facility]. According to her records she has not been compliant with neurology visits nor has been taking her Keppra. Per her office records she signed a tubal sterilization consent on 01/22/2018. She has a history of 5 previous delivered between 30-34weeks due to epileptic seizures. Her asthma is well controlled. She also has a history of HSV2. Past History Past Medical History: seizure Past Surgical History: section Social history: - Obstetrical History Expected Date of Delivery: 05/28/18 Actual Gestation: 31 Week(s) 4 Day(s) : 9 Para: 5 Hx # Term Pregnancies: 0 Number of Pregnancies: 5 Spontaneous Abortions: 3 Number of Living Children: 6 Medications and Allergies Allergies Allergy/AdvReac Type Severity Reaction Status Date / Time ceftriaxone [From Rocephin] Allergy Swelling Verified 01/16/18 15:24 morphine Allergy Shortness Verified 01/16/18 15:34 of Breath turbutaline Allergy Shortness Uncoded 10/11/17 09:53 of Breath Home Medications Medication Instructions Recorded Confirmed Last Taken Type Albuterol Sulfate [Ventolin HFA] 1 - 2 puff IH Q6H PRN 01/16/18 01/20/18 Unknown History Ferrous Sulfate [Iron] 325 mg PO DAILY 01/16/18 01/20/18 Unknown History Ondansetron [Zofran TAB] 4 mg PO Q8HR PRN 01/16/18 01/20/18 Unknown History levETIRAcetam [Keppra TAB] 500 mg PO QDAY 01/20/18 01/20/18 Unknown History Active Meds: Active Medications Acetaminophen (Tylenol) 650 mg PO Q4H PRN PRN Reason: Pain MILD(1-3)/Fever >100.5/TAFOYA Docusate Sodium (Colace) 100 mg PO Q12H PRN PRN Reason: Constipation Levetiracetam 750 mg/ Sodium (Chloride) 107.5 mls @ 400 mls/hr IV Q12H MOON Last Admin: 03/30/18 17:10 Dose: 400 mls/hr Clindamycin HCl (Cleocin 900 Mg/50 Ml) 900 mg in 50 mls @ 100 mls/hr IV Q8HR MOON; Protocol Stop: 04/01/18 14:29 Lactated Ringer's (Lactated Ringers) 1,000 mls @ 125 mls/hr IV DIRECT MOON Last Admin: 03/30/18 17:10 Dose: 125 mls/hr Levetiracetam 1,000 mg/ Sodium (Chloride) 110 mls @ 400 mls/hr IV ONCE ONE Stop: 03/30/18 18:16 Multivitamins/Iron/Calcium ( Vitamin) 1 each PO QDAY MOON Ondansetron HCl (Zofran) 4 mg IV Q6H PRN PRN Reason: Nausea And Vomiting - Vital Signs Vital signs: Vital Signs Pulse Ox 62 L 03/30/18 15:55 Temp Pulse Resp BP Pulse Ox 89 100 03/30/18 16:00 03/30/18 16:00 - Obstetrical FHR: auscultation normal, other (FHT [id number]) Results All other labs normal. Assessment and Plan - Patient Problems (1) 31 weeks gestation of Current Visit: Yes Status: Acute Plan to address problem: 1. Continuous monitoring initiated. 2. Betamethasone for lung maturity administered. 3. Magnesium sulfate for neuroprotection will be discussed with Maternal medicine before administration due to concurrent administration of Keppra. 4. [facility]/MFM consult made. Spoke with Dr. Nelson recommend 24hr betamethasone and magnesium sulfate for neuroprotection. 5. Plan to deliver if sign of compromise. Plan to stabilize maternal status in ICU. 6. ICU/Report Manager consult made. Neurology consult made. Hospitalist consult made. (2) Status epilepticus Current Visit: Yes Status: Acute Plan to address problem: 1. Ativan 2mg administered. 2. Transfer to ICU for management of acute status epilepticus. 3. Seizure precautions. 4. Neuro consult with Dr. Paiz. Dr. Paiz recommends drawing magnesium levels prior to administering magnesium sulfate and states concurrent administration of Keppra and magnesium sulfate not contraindicated in the mother. (3) History of epilepsy Current Visit: Yes Status: Acute (4) Asthma Current Visit: Yes Status: Acute Plan to address problem: stable (5) History of delivery Current Visit: Yes Status: Acute Plan to address problem: Mode of delivery planned, repeat section and bilateral tubal ligation for delivery. (6) History of delivery, currently Current Visit: Yes Status: Acute (7) HSV-2 seropositive Current Visit: Yes Status: Acute Plan to address problem: Suppression at 36 weeks and treat outbreaks.
[2018-03-30] MEDS ORDERED: CELESTONE SOLUSPAN IM ONE (17:23)
[2018-03-30] MEDS ORDERED: FOLVITE IV SCH (18:00)
[2018-03-30] MEDS ORDERED: DIPRIVAN 10 MG/ML 1,000 MG/100 ML BOTTLE IV SCH (18:00)
[2018-03-30] MEDS ORDERED: NACL 0.9% IV SCH (18:00)
[2018-03-30] MEDS ORDERED: CELESTONE SOLUSPAN IM SCH (18:00)
[2018-03-30] MEDS ORDERED: KEPPRA 1,000 MG/NS 0.75% 100ML 1,000 MG/100 ML BAG IV ONE (18:00)
[2018-03-30] MEDS ORDERED: NACL 0.9% 1000 ML 1,000 ML ONE (18:01)
[2018-03-30] MEDS ORDERED: ARTIFICIAL TEARS OPHTH OINT OU PRN (18:28)
[2018-03-30] MEDS ORDERED: VASELINE LIP THERAPY TP PRN (18:28)
[2018-03-30] MEDS ORDERED: NACL 0.9% 1000 ML 1,000 ML IV ONE (18:29)
[2018-03-30] MEDS ORDERED: MAGNESIUM SULFATE 4GM/100ML 4 GM/100 ML BAG IV ONE (18:50)
--- NOTE | 2018-03-30 18:59 | Event Note ---
Patient has been intubated by Anesthesiologist, Dr. Brantley, to maintain her airway. Call placed to [facility] and [facility] to accept transfer. Dr. Barry received acceptance of hospital to hospital transfer from [facility] prior to my return call from [place]. is present and in the waiting room. Biophysical profile ordered. NST FHT 150s. Plan: Transfer to [facility] for high risk in light of status epilepticus requiring intubation.
--- NOTE | 2018-03-30 19:02 | Event Note ---
Date: 03/30/18 See dictated consult in reports Status Epilepticuss
[2018-03-30] MEDS ORDERED: FOLVITE 1 MG in NACL 0.9% 50 ML IV SCH (19:30)
[2018-03-30 19:40] LABS: Basophils # (Auto) 0.1 K/mm3 (0.0-0.1); Basophils % (Auto) 0.6 % (0.0-1.8); Eosinophils # (Auto) 0.1 K/mm3 (0.0-0.4); Eosinophils % (Auto) 0.6 % (0.0-4.3); Hematocrit 31.4 % (30.3-42.9); Hemoglobin 11.1 gm/dl (10.1-14.3); Lymphocytes # (Auto) 2.9 K/mm3 (1.2-5.4); Lymphocytes % (Auto) 26.7 % (13.4-35.0); Mean Corpuscular HGB Conc 36 % (30-34); Mean Corpuscular Hemoglobin 32 pg (28-32); Mean Corpuscular Volume 90 fl (79-97); Monocytes # (Auto) 0.6 K/mm3 (0.0-0.8); Monocytes % (Auto) 5.6 % (0.0-7.3); Platelet Count 165 K/mm3 (140-440); Red Blood Count 3.47 M/mm3 (3.65-5.03); Red Cell Distribution Width 12.8 % (13.2-15.2)
--- NOTE | 2018-03-30 19:45 | Consultation ---
History of Present Illness Consult date: 03/30/18 Requesting physician: YVES SEAY Reason for Consult: status epilepticus History of present illness: 30 yo female, at 31 weeks, history previous c/section x 3 and history of epilepsy. She was transferred by EMS to L&D due to status epilepticus. She presented to [facility] today stating she had 2 previous seizures. EMS was called and she was transported to L&D. During the interim period, 6 seizures were observed by clinic staff. On L&D Dr. Gloria initiated a central line, administered IVF and Versed 2mg IV was given. The patient has maintaned her oxygen saturation at 100% on O2 nasal canula. heart tones were confirmed in the 140-150s through out observation so the decision was made to transfer mother to ICU. She continues to seize but the time between seizures has lengthened. She has maintained consciousness during the seizures. Her has been complicated by an ICU admission in February at [facility] ICU where she was intubated due to seizures. She has missed the last month of clinic visits. She has been followed by [facility]. According to her records she has not been compliant with neurology visits nor has been taking her Keppra. . She has a history of 5 previous delivered between 30-34weeks due to epileptic seizures. On arrival to ICU Keppra 1000 mg IV was ordered. monitoring continued, without abnormality. Improved IV access was obtained. It was then determinmed that the patient should be transferred to [place] for EEG monitoring. Past History Past Medical History: seizures Past Surgical History: Social history: Medications and Allergies Allergies Allergy/AdvReac Type Severity Reaction Status Date / Time ceftriaxone [From Rocephin] Allergy Swelling Verified 01/16/18 15:24 morphine Allergy Shortness Verified 01/16/18 15:34 of Breath turbutaline Allergy Shortness Uncoded 10/11/17 09:53 of Breath Home Medications Medication Instructions Recorded Confirmed Last Taken Type Albuterol Sulfate [Ventolin HFA] 1 - 2 puff IH Q6H PRN 01/16/18 01/20/18 Unknown History Ferrous Sulfate [Iron] 325 mg PO DAILY 01/16/18 01/20/18 Unknown History Ondansetron [Zofran TAB] 4 mg PO Q8HR PRN 01/16/18 01/20/18 Unknown History levETIRAcetam [Keppra TAB] 500 mg PO QDAY 01/20/18 01/20/18 Unknown History Acetaminophen [Acetaminophen TAB] 650 mg PO Q4H PRN tablet 03/30/18 Unknown Rx Betamet Acet/Betamet Na pH 12 mg IM Q24HR vial 03/30/18 Unknown Rx [Celestone Soluspan] Docusate Sodium [Colace CAP] 100 mg PO Q12H PRN capsule 03/30/18 Unknown Rx Min Oil/Petrolatum [Artificial 1 applic OU Q4HR PRN tube 03/30/18 Unknown Rx Tears Ophth Oint] Ondansetron [Zofran INJ] 4 mg IV Q6H PRN vial 03/30/18 Unknown Rx Petrolatum,White [Vaseline Lip 1 applic TP Q2HR PRN tube 03/30/18 Unknown Rx Therapy] Vit-Fe Fumar-FA [ 1 each PO QDAY tablet 03/30/18 Unknown Rx Vitamin] Sodium Chloride 0.9% [NaCl 0.9% 50 75 ml IV Q1H 7 Days #1000 ml 03/30/18 Unknown Rx ML] Active Meds: Active Medications Acetaminophen (Tylenol) 650 mg PO Q4H PRN PRN Reason: Pain MILD(1-3)/Fever >100.5/TAFOYA Betamethasone Acet/Betameth SodPhos (Celestone Soluspan) 12 mg IM Q24HR MOON Last Admin: 03/30/18 17:45 Dose: 12 mg Docusate Sodium (Colace) 100 mg PO Q12H PRN PRN Reason: Constipation Hydrophilic Ointment (Vaseline Lip Therapy) 1 applic TP Q2HR PRN PRN Reason: Dry Lips Levetiracetam 750 mg/ Sodium (Chloride) 107.5 mls @ 400 mls/hr IV Q12H MOON Last Admin: 03/30/18 17:10 Dose: 400 mls/hr Clindamycin HCl (Cleocin 900 Mg/50 Ml) 900 mg in 50 mls @ 100 mls/hr IV Q8HR MOON; Protocol Stop: 04/01/18 14:29 Propofol (Diprivan 10 Mg/Ml) 1,000 mg in 100 mls @ 1.905 mls/hr IV TITR MOON; Protocol Last Admin: 03/30/18 18:17 Dose: 5 mcg/kg/min, 1.905 mls/hr Folic Acid 1 mg/ Sodium (Chloride) 50.2 mls @ 100.4 mls/hr IV QDAY MOON Lactated Ringer's (Lactated Ringers) 1,000 mls @ 125 mls/hr IV DIRECT MOON Magnesium Sulfate (Magnesium Sulfate 4gm/100ml) 4 gm in 100 mls @ 25 mls/hr IV ONCE ONE Stop: 03/30/18 22:49 Midazolam HCl 100 mg/ Sodium (Chloride) 100 mls @ 2 mls/hr IV TITR MOON; Protocol Multi-Ingred Cream/Lotion/Oil/Oint (Artificial Tears Ophth Oint) 1 applic OU Q4HR PRN PRN Reason: Dry Eye(s) Multivitamins/Iron/Calcium ( Vitamin) 1 each PO QDAY MOON Ondansetron HCl (Zofran) 4 mg IV Q6H PRN PRN Reason: Nausea And Vomiting Review of Systems ROS unobtainable: due to mental status Physical Examination - Vital Signs Vital Signs: Vital Signs Pulse Ox 62 L 03/30/18 15:55 - Physical Exam Narrative exam: Arouses to name and attempts to turn to voice. Persistent left eye deviation. Results - Laboratory Findings CBC and BMP: 03/30/18 19:09 Abnormal Lab Findings: Abnormal Labs 03/30/18 19:09 RBC 3.47 L MCHC 36 H RDW 12.8 L Assessment and Plan 28 year old female with hx of epilepsy and noncompliance. Presents with multiple seizures. Keppra 1000 mg administered. Then intubated and given propofol. Plans for transfer to [facility] are underway.
[2018-03-30] MEDS ORDERED: MIDAZOLAM 100 MG in NACL 0.9% 80 ML IV SCH (20:00)
[2018-03-30 20:01] LABS: Alanine Aminotransferase 9 units/L (7-56); Albumin 3.3 g/dL (3.9-5); BUN/Creatinine Ratio 13; Blood Urea Nitrogen 5 mg/dL (7-17); Calcium 8.5 mg/dL (8.4-10.2); Hemolysis Index 6
[2018-03-30 20:02] LABS: Alanine Aminotransferase 7 units/L (7-56); Albumin 3.2 g/dL (3.9-5); BUN/Creatinine Ratio 20; Blood Urea Nitrogen 6 mg/dL (7-17); Calcium 8.6 mg/dL (8.4-10.2); Hemolysis Index 19
[2018-03-30 20:31] LABS: Bilirubin,Urine NEG (Negative); Blood,Urine NEG (Negative); Color,Urine Yellow (Yellow); Protein,Urine <15 mg/dL mg/dL (Negative); Urobilinogen,Urine < 2.0 mg/dL (<2.0)
[2018-03-30 21:14] VITALS: BP 107/46
--- NOTE | 2018-03-30 21:16 | XRay Report ---
FINAL REPORT EXAM: XR ABDOMEN 1V AP HISTORY: NGT placement patient is 7 months . TECHNIQUE: The patient's abdomen was shielded for this study. Frontal view of the chest and upper abdomen FINDINGS: The tip of the endotracheal tube is at the superior aspect of the clavicles. The tip is projected approximately 5.4 centimeters above the level of the kirsten. The tip of the esophagogastric tube and side port are projected in the region of the stomach. There is mild elevation the right hemidiaphragm. There is no evidence of focal infiltrate, pneumothorax or pleural fluid collection. The cardiomediastinal silhouette is normal in appearance. The bony structures are unremarkable. IMPRESSION: 1. The tip of the endotracheal tube is projected at the superior aspect of the clavicles and is projected approximately 5.4 centimeters above the level of the kirsten. If the endotracheal tube were advanced approximately 2.5 centimeters the tip would be projected at the inferior aspect of the clavicles and approximately 2.7 centimeters above the level of the kirsten. 2. Tip and side port of esophagogastric tube projected in the region of the stomach. 3. No evidence of an acute pulmonary process.
--- NOTE | 2018-03-30 21:16 | XRay Report ---
FINAL REPORT EXAM: XR CHEST 1V AP HISTORY: ETT placement the patient is 7 months . TECHNIQUE: The patient's abdomen was shielded for the study. Frontal view of the chest and upper abdomen. FINDINGS: The tip of the endotracheal tube is at the superior aspect of the clavicles. The tip is projected approximately 5.4 centimeters above the level of the kirsten. The tip of the esophagogastric tube and side port are projected in the region of the stomach. The there is mild elevation of the right hemidiaphragm. There is no evidence of focal infiltrate, pneumothorax or pleural fluid collection. The cardiomediastinal silhouette is normal in appearance. The bony structures are unremarkable. IMPRESSION: 1. The tip of the endotracheal tube is projected at the superior aspect of the clavicles and is projected approximately 5.4 centimeters above the level of the kirsten. If the endotracheal tube were advanced approximately 2.5 centimeters the tip would be projected at the inferior aspect of the clavicles and approximately 2.7 centimeters above the level of the kirsten. 2. Tip and side port of the esophagogastric tube are projected in the region of the stomach. 3. No evidence of an acute pulmonary process.
--- NOTE | 2018-03-30 21:21 | Ultrasound Report ---
FINAL REPORT PROCEDURE: US OB BPP WO NON-STRESS TECHNIQUE: Real-time limited sonographic examination was performed for evaluation of size, position, heartbeat, fluid volume for each fetus with image documentation (1 or more fetuses). CPT 00911 HISTORY: well being COMPARISON: No prior studies are available for comparison. FINDINGS: biophysical profile:. breathing movements: 2. movements: 2. posterior and tone: 0. Qualitative amniotic fluid volume: 2. Total score: 6/8. Heart rate is 129 beats per minute. IMPRESSION: Biophysical profile: 6/8.
[2018-03-30] MEDS ORDERED: CLEOCIN 900 MG/50 mL 900 MG/50 ML BAG IV SCH (22:00)
--- NOTE | 2018-03-31 05:02 | Consultation ---
CHIEF COMPLAINT: Continued seizures from 2:30 p.m. HISTORY OF PRESENT ILLNESS: A 28-year-old black female with a history of seizures and 31 weeks, 9, para 5 and a history of C-sections x 3, brought in by EMS to Labor and Delivery for status epilepticus. She presented to [facility] and had 2 previous seizures. The patient was seizing actively from 2:30 p.m. Six seizures were observed by the clinical staff. A central line was put in and 2 mg of Versed was given. The patient was maintained on oxygen at 100%. heart tones were around 140-150. The patient transferred from and to ICU for further care with the database marketing manager and the hospitalist team. She is also followed by [facility]. She has not been compliant with her visits and has not been taking her Keppra properly. The patient had tubal sterilization consent on 01/22/2018. She has a history of previously delivered between 30-40 weeks. PAST MEDICAL HISTORY: Significant for seizures and . PAST SURGICAL HISTORY: . SOCIAL HISTORY: Does not smoke. No alcohol, no recreational drugs. FAMILY HISTORY: Hypertension. REVIEW OF SYSTEMS: Significant for recurrent seizures. Otherwise, review of systems negative. A 14-point review of systems done. In the ICU, the patient is being intubated at the time of my examination for protection of airway and continuous seizures. PHYSICAL EXAMINATION: GENERAL: On examination, young female, cooperative during examination, postictal. VITAL SIGNS: Blood pressure is 152/92, temperature is 98, pulse is 99, respirations are 16, and sats 100%. HEENT: Unremarkable. Pupils are equal and reactive. NECK: Supple, no lymphadenopathy, no thyromegaly. LUNGS: Clear to auscultation and percussion. Good air entry. CARDIOVASCULAR: S1, S2 heard. No gallop, no murmur, no rub. Apical impulse in left fifth intercostal space and midclavicular line. ABDOMEN: Soft and benign. No hepatosplenomegaly. No guarding, no rigidity. Hernial orifices are normal. EXTREMITIES: Good pedal pulses. No pedal edema. CENTRAL NERVOUS SYSTEM: Alert and oriented x 4. Occasionally, intermittently postictal. Altered sensorium. Moves all 4 extremities. SKIN: Normal. LABORATORY DATA: Significant for an ABG of pH of 7.4, pCO2 of 36.4, pO2 of 83, bicarbonate of 22.8, CO2 of 24, and sats 96%. No other labs are available. BUN and creatinine are 6 and 0.5 done on 01/20/2018. ASSESSMENT AND PLAN: 1. Status epilepticus. The patient initiated on IV Keppra 750 q.12. The patient intubated for protection of airway. Maintain vent settings. 2. Respiratory failure secondary to status epilepticus. Continue vent support. [employer] consulted. 3. Seizure disorder. The database marketing manager wants continuous EEG monitoring and the patient to be transferred to [facility] or [facility]. 4. DVT prophylaxis, SCDs. CRITICAL CARE STATEMENT: The high probability of a clinically significant sudden or life-threatening deterioration of the pulmonary, cardiac and renal systems required my full and direct attention, intervention, and personal management. The aggregate critical care time was 35 minutes. This time is in addition to time spent performing reported procedures, but includes the following; data review and interpretation, patient assessment and monitoring of vital signs, documentation, medication orders and management. JOB# [id number] ZAMZAM/CARRIE
--- NOTE | 2018-03-31 05:21 | Anesthesia Consultation ---
Anesthesia Consult and Med Hx Date of service: 03/30/18 - Airway Anesthetic Teeth Evaluation: Good ROM Head & Neck: Inadequate (patient in status epilepticus and not following all commands) Mental/Hyoid Distance: Adequate Mallampati Class: Class IV Intubation Access Assessment: Possibly Difficult - Pulmonary Exam CTA: Yes - Pre-Operative Health Status ASA Pre-Surgery Classification: ASA4 Proposed Anesthetic Plan: General - Pre-Anesthesia Comment Pre-Anesthesia Comments: Patient is 30 weeks gestation in Status epilepticus. Being treated with Keppra drip. Unsure of NPO Status. Activly seizing during anesthetic/airway evaluation. intubation requested for airway protection awaiting transfer to outside hospital for continuous EEG and status Epilepticus management in - Pulmonary Hx Asthma: No - Cardiovascular System Hx Hypertension: No - Central Nervous System Hx Seizures: Yes Hx Psychiatric Problems: No - Endocrine Hx Renal Disease: No Hx Hypothyroidism: No Hx Hyperthyroidism: No - Hematic Hx Anemia: No Hx Sickle Cell Disease: No - Other Systems Hx Alcohol Use: No
--- NOTE | 2018-03-31 05:26 | Progress Note ---
Subjective Date of service: 03/30/18 Principal diagnosis: Status epilepticus Interval history: Patient intubated with Glidescope. Vitals were monitored. Preinduction oxygenation was done Induction Medications administered Midazolam 5mg Etomidate 20mg Rocuronium 50mg Patient bag mask ventilated to 100% saturation Endotracheal tube passed through vocal cords via visualization using Glidescope Balloon inflated Bilateral breath sounds auscultated Positive capnometry Tube secured Objective - Constitutional Vitals: Vital Signs - 12hr 03/30/18 03/30/18 03/30/18 17:30 17:31 17:41 Temperature Pulse Rate 83 78 Respiratory 10 L 18 Rate Blood Pressure 110/67 110/67 O2 Sat by Pulse 98 100 Oximetry 03/30/18 03/30/18 03/30/18 17:51 18:01 18:11 Temperature Pulse Rate 71 77 105 H Respiratory 14 18 18 Rate Blood Pressure 115/83 115/83 137/90 O2 Sat by Pulse 100 100 Oximetry 03/30/18 03/30/18 03/30/18 18:15 18:20 18:31 Temperature Pulse Rate 90 104 H 70 Respiratory 20 28 H Rate Blood Pressure 152/92 142/98 137/90 O2 Sat by Pulse 99 97 Oximetry 03/30/18 03/30/18 03/30/18 18:41 18:50 19:00 Temperature Pulse Rate 102 H 88 83 Respiratory 25 H 31 H 24 Rate Blood Pressure 111/63 115/64 117/64 O2 Sat by Pulse 98 97 96 Oximetry 03/30/18 03/30/18 03/30/18 19:11 19:21 19:31 Temperature Pulse Rate 83 92 H 83 Respiratory 21 17 26 H Rate Blood Pressure 115/88 105/77 105/77 O2 Sat by Pulse 100 100 Oximetry 03/30/18 03/30/18 03/30/18 19:41 19:51 20:00 Temperature 97.1 F L Pulse Rate 82 88 80 Respiratory 28 H 24 18 Rate Blood Pressure 102/54 115/90 105/52 O2 Sat by Pulse Oximetry 03/30/18 03/30/18 03/30/18 20:11 20:21 20:30 Temperature Pulse Rate 78 73 77 Respiratory 25 H 17 22 Rate Blood Pressure 116/59 113/52 120/61 O2 Sat by Pulse Oximetry 03/30/18 03/30/18 03/30/18 20:41 20:51 21:02 Temperature Pulse Rate 78 77 86 Respiratory 16 21 Rate Blood Pressure 120/72 108/61 107/46 O2 Sat by Pulse 100 100 Oximetry - Labs CBC & Chem 7: 03/30/18 19:09 03/30/18 19:09 Labs: Abnormal lab results 03/30/18 03/30/18 03/30/18 Range/Units 19:09 19:09 19:09 RBC 3.47 L (3.65-5.03) M/mm3 MCHC 36 H (30-34) % RDW 12.8 L (13.2-15.2) % Sodium 135 L 135 L (137-145) mmol/L Potassium 3.2 L 3.2 L (3.6-5.0) mmol/L Carbon Dioxide 19 L 19 L (22-30) mmol/L BUN 5 L 6 L (7-17) mg/dL Creatinine 0.4 L 0.3 L (0.7-1.2) mg/dL Glucose 107 H 106 H (65-100) mg/dL Albumin 3.3 L 3.2 L (3.9-5) g/dL
--- NOTE | 2018-03-31 05:48 | Consultation ---
PULMONARY CRITICAL CARE CONSULT NOTE CONSULTING PHYSICIAN: Dr. Talavera. REASON FOR CONSULTATION: Status epilepticus. CHIEF COMPLAINT AND HISTORY OF PRESENT ILLNESS: This patient is a 28-year-old -[place] female at reportedly 31 weeks of gestation with a history of epilepsy, who was transferred by EMS to Labor and Delivery due to status epilepticus. While at the [facility], she had multiple seizures. They reported about 6 seizures by the clinic staff. The patient received Versed 2 mg IV. tones were confirmed in the 140s to 150s and a decision was made to transfer the mother to ICU. She apparently continued to have seizures, but at that time the period between the seizures was lengthening and so decision was made not to deliver the baby. We are asked to assist with management. When I stopped by to see her, she continued to have seizures, unable to respond to my prompts. She had tonic-clonic contractions to the upper neck and face muscles at the time I saw her. mentions again that she does have a seizure disorder and had been on Keppra. Tobacco use/abuse history is unknown at this time. This really is as much of the history of presentation as I have. PAST MEDICAL HISTORY: Seizure disorder, . PAST SURGICAL HISTORY: She has had a section in the past. MEDICATIONS: She was on at the time I stopped by to see were reviewed. Pertinent medications ordered included Celestone 12 mg IM q. 24, clindamycin 900 mg IV q. 8 hours, docusate sodium 100 mg p.o. q. 12 hours p.r.n. constipation, folic acid 1 mg had been ordered earlier along with Keppra 1 gram loading dose, daily multivitamin, multivitamin was ordered. Propofol had been ordered for sedation post-intubation. ALLERGIES: ROCEPHIN AND MORPHINE, nature of this allergy is unknown. DIET: Well-built lady, acute weight loss or gain history is unknown. FAMILY AND SOCIAL HISTORY: She is . I did speak with her , but he was a little bit distraught. He confirmed that she does have seizure disorder. Alcohol, tobacco, or illicit drug use or abuse history unknown. REVIEW OF SYSTEMS: Unobtainable secondary to the patient's medical and mental condition. Since she has been here, she continued to have seizure type activity. No vomiting or overt aspiration. No hematochezia or melena. No gross vaginal bleeding has been reported. REVIEW OF SYSTEMS: Otherwise unobtainable. PHYSICAL EXAMINATION: VITAL SIGNS: At presentation here, temperature 97.4 degrees Fahrenheit, pulse of 89, respiratory rate in the 20s and blood pressure 152/92, O2 sats 100% on the ventilator, on 100% FIO2. At that point, O2 sats of 77% were recorded. GENERAL: She is a young-looking -[place] female, normocephalic, atraumatic. Unable to respond, crunching her mouth and with the neck muscles, in moderate respiratory distress. HEAD, EYES, EARS, NOSE AND THROAT: She is anicteric. No conjunctival erythema. Oropharynx is moist. Grossly, no palpable lymph nodes in the supraclavicular or submandibular lymph node chains. No thyromegaly. LUNGS: Auscultation of both lung keen significant for basilar rhonchi, diminished air movement, no wheezing. HEART: Heart sounds 1 and 2 are heard. Regular tachycardia at the time of my evaluation. No rubs or murmurs. ABDOMEN: Soft, full, protuberant/distended, abdomen. Bowel sounds are positive, but diminished. No obvious palpable hepatosplenomegaly. EXTREMITIES: Without overt digital clubbing, cyanosis, or pedal edema. NEUROLOGIC: She was not responsive and she was having seizure-type activity. She seemed to have spontaneous movement to all 4 extremities. The skin was of normal turgor without cellulitis or rash. LABORATORY DATA: From my review, I do not have any lab data from this current admission. RADIOGRAPHIC STUDIES: I do not have any radiographic studies for my review. Microbiology studies: We do not have any at this point in time. ASSESSMENT: 1. Status epilepticus. 2. Acute hypoxemic respiratory failure. 3. A 31-week gravid uterus/. 4. History of seizures. PLAN: I have discussed with the [facility] staff in the room. They did not feel that this is a primarily related to eclampsia or preeclampsia. She has done this during her previous pregnancies and hope was that she would actually stopped seizing; however, nobody has really been able to tell me if there were any real lucid periods during seizures since she was first observed. For this reason, the appropriate thing will be. 1. Rapid sequence intubation and stabilization. 2. Sedation will be with propofol for fear of obviously complications. 3. She will receive the loading dose of Keppra and the plan will be to continue Keppra. 4. I have put in a stat call to neighboring hospital as she will need continuous EEG monitoring and the plan will be to transfer her as soon as possible. 5. I will go ahead and morales culture her and see if this is an infection-related seizure. 6. Serum electrolytes are pending including serum magnesium levels, certainly magnesium will be repleted and kept on the high side of normal if found to be low. OG tube will be placed. Ultimately, enteral nutrition will be the feeding modality of choice. We will use it for NG suction in case of any bleeding. She is also receiving folic acid along with Keppra. She will be placed on GI prophylaxis as well as DVT prophylaxis. Flu and pneumonia vaccination will be addressed per protocol. Confirmation of the ET tube and OG tube will soon be done. Thank you very much for the consult. We will follow along and make further recommendations as picture progresses/becomes clearer. She is critically ill on life-sustaining interventions including mechanical ventilatory support at high risk for further deterioration in the neurologic, respiratory, cardiovascular systems including the risk of . At this point, I have spent about 40-45 minutes of critical care time without overlap and excluding any procedural time that may be necessary. JOB# [id number] INES/CARRIE
[2018-03-31] MEDS ORDERED: KEPPRA 750 MG in NACL 0.9% 100 ML IV SCH (06:00)
[2018-03-31] MEDS ORDERED: PRENATAL VITAMIN PO SCH (10:00)
== END 2018-03-30 21:35 | disposition short-term general hospital (02) | DRG 781 ==
LOC: TRG 15:49 → LD 15:50 → TRG 15:58 → CC1 16:01
PROVIDERS: ADMIT Obstetrics & Gynecology; ATTEND Obstetrics & Gynecology
PROC: 5A1935Z Respiratory Ventilation, Less than 24 Consecutive Hours (ICD-10-PCS; principal; 2018-03-30)
PROC: 0BH17EZ Insertion of Endotracheal Airway into Trachea, Via Natural or Artificial Opening (ICD-10-PCS; 2018-03-30)
DX: O99.353 Diseases of the nervous system complicating pregnancy, third trimester (principal); G40.901 Epilepsy, unspecified, not intractable, with status epilepticus; J45.909 Unspecified asthma, uncomplicated; O99.513 Diseases of the respiratory system complicating pregnancy, third trimester; J96.01 Acute respiratory failure with hypoxia; Z3A.31 31 weeks gestation of pregnancy; O09.43 Supervision of pregnancy with grand multiparity, third trimester; Z88.8 Allergy status to other drugs, medicaments and biological substances; Z88.5 Allergy status to narcotic agent; Z88.1 Allergy status to other antibiotic agents; Z79.52 Long term (current) use of systemic steroids; Z91.19 Patient's noncompliance with other medical treatment and regimen; Z82.49 Family history of ischemic heart disease and other diseases of the circulatory system
CPT/HCPCS: 36415; 71045; 74018; 76819; 80053; 80177; 81001; 82803; 83735; 85025; 86140; 86850; 86900; 86901; 87040; 87086; 94002; 94003; J0702; J1953; J2250; J2704; J7030; J7120

== ENCOUNTER 2018-04-22 12:36 | Outpatient (CLI) | payer MEDICAID ==
[2018-04-22 12:50] VITALS: BP 103/64
--- NOTE | 2018-04-22 14:13 | Ultrasound Report ---
ULTRASOUND BIOPHYSICAL PROFILE: History: Seizure Technique: Transabdominal ultrasound with Doppler interrogation. 2 - breathing movements 2 - movements 2 - posture and tone 2 - Qualitative amniotic fluid volume 8 - TOTAL SCORE OF POSSIBLE 8 Heart Rate (bpm) 156
--- NOTE | 2018-04-22 14:14 | Ultrasound Report ---
ULTRASOUND OB LIMITED History: Seizure Technique: Transabdominal ultrasound with Doppler interrogation. Gestation: Single Position: Cephalic Amniotic Fluid: Normal JOSE = 8.0 cm Heart Rate: 149 BPM
== END 2018-04-22 14:30 | disposition home or self-care (01) ==
LOC: TRG 12:36
PROVIDERS: ATTEND Obstetrics & Gynecology
DX: O47.03 False labor before 37 completed weeks of gestation, third trimester (principal); Z86.69 Personal history of other diseases of the nervous system and sense organs; Z88.8 Allergy status to other drugs, medicaments and biological substances; Z3A.35 35 weeks gestation of pregnancy
CPT/HCPCS: 59025; 76815; 76819

== ENCOUNTER 2019-01-25 04:43 | Emergency (ER) | payer MEDICAID ==
--- NOTE | 2019-01-25 05:26 | XRay Report ---
CHEST 1 VIEW INDICATION / CLINICAL INFORMATION: Chest Pain. COMPARISON: None available. FINDINGS: SUPPORT DEVICES: None. HEART / MEDIASTINUM: No significant abnormality. LUNGS / PLEURA: No significant pulmonary or pleural abnormality. No pneumothorax. ADDITIONAL FINDINGS: No significant additional findings. IMPRESSION: 1. No acute findings. Signer Name: Rommel Tsai MD Signed: 01/25/2019 5:22 AM Workstation Name: [id number]
--- NOTE | 2019-01-25 07:25 | Emergency Department Report ---
Minor Respiratory - HPI Chief Complaint: Chest Pain Stated Complaint: DYSPHAGIA Time Seen by Provider: 01/25/19 07:23 Duration: 3 Days Pain Location: Throat Severity: mild Minor Respiratory: Yes Sore Throat, Yes Able to Tolerate Fluids, No Rhinorrhea, No Ear Pain, No Cough, No Sick Contacts, No Hemoptysis, No Chest Pain, No Shortness of Breath, No Fever Other History: Patient is a 28-year-old female comes to the ER complaining of sore throat. There is no abscess. No trismus. She is taking by mouth. Vital signs are normal and she has no fever. She has several small children at home including an 8-month-old that she is nursing and also been sick. Patient is allergic to morphine. She states Tylenol has not been helping. I've explained to the patient that she is breast-feeding and should not be taking narcotics nor did she need narcotics for her sore throat. ED Review of Systems ROS: Stated complaint: DYSPHAGIA Other details as noted in HPI Comment: All other systems reviewed and negative ED Past Medical Hx - Past Medical History Previous Medical History?: Yes Hx Hypertension: No Hx Congestive Heart Failure: No Hx Diabetes: No Hx Deep Vein Thrombosis: No Hx Renal Disease: No Hx Sickle Cell Disease: No Hx Seizures: Yes (every day seizures, non compliant with meds) Hx Asthma: Yes Hx COPD: No Hx HIV: No - Surgical History Hx Breast Surgery: Yes (reduction) Additional Surgical History: - Family History Family history: no significant - Social History Smoking Status: Never Smoker Substance Use Type: None - Medications Home Medications: Home Medications Medication Instructions Recorded Confirmed Last Taken Type Albuterol Sulfate [Ventolin HFA] 1 - 2 puff IH Q6H PRN 01/16/18 04/26/18 Unknown History Ferrous Sulfate [Iron 325 MG] 325 mg PO DAILY 01/16/18 04/26/18 Unknown History Betamet Acet/Betamet Na pH 12 mg IM Q24HR vial 03/30/18 04/26/18 Unknown Rx [Celestone Soluspan] Vit-Fe Fumar-FA [ 1 each PO QDAY tablet 03/30/18 04/26/18 Unknown Rx Vitamin] lamoTRIgine [LaMICtal] 25 mg PO HS 04/26/18 04/26/18 04/25/18 20:00 History Amoxicillin [Trimox CAP] 500 mg PO BID #20 capsule 01/25/19 Unknown Rx Minor Respiratory Exam - Exam General: Vital signs noted. No distress. Alert and acting appropriately. HEENT: Yes Pharyngeal Erythema, Yes Moist Mucous Membranes, No Pharyngeal Exudates, No Rhinorrhea, No Conjuctival Injection, No Frontal Tenderness, No Maxillary Tenderness Ear: Neither TM Bulge, Neither TM Erythema, Neither EAC Pain, Neither EAC Discharge Neck: Yes Supple, No Adenopathy Lungs: Yes Good Air Exchange, No Wheezes, No Ronchi, No Stridor, No Cough, No Labored Respirations, No Retractions, No Use of Accessory Muscles, No Other Abnormal Lung Sounds Heart: Yes Regular, No Murmur Abdomen: No Tenderness, No Peritoneal Signs Skin: No Rash, No Edema Neurologic: Alert and oriented, no deficits. Musculoskeletal: Unremarkable. ED Medical Decision Making - Medical Decision Making simple pharyngitis no abscess no trismus taking po vss no fever denies chest pain on my exam no home meds nursing a 8 m old has had amox in the past medicated in ER dc home with dc plan of care. Critical care attestation.: If time is entered above; I have spent that time in minutes in the direct care of this critically ill patient, excluding procedure time. ED Disposition Clinical Impression: Pharyngitis Disposition: DC-01 TO HOME OR SELFCARE Is pt being admited?: No Does the pt Need Aspirin: No Condition: Stable Instructions: Pharyngitis (ED) Additional Instructions: DIET TOLERATED MEDS ORDERED TODAY IN ER FOLLOW INSTRUCTIONS ON THE BOTTLE FOLLOW UP PCP WITHIN 48 HOURS TO ENSURE YOU ARE GETTING BETTER ACTIVITY TOLERATED TYLENOL FOR PAIN OR FEVER RETURN TO THE ER FOR WORSENING SYMPTOMS NOT RELIEVED BY YOUR MEDICATIONS. Referrals: RODGER MCGEE MD [Staff Physician] - 3-5 Days Time of Disposition: 07:55
[2019-01-25] MEDS ORDERED: TRIMOX PO ONE (07:51)
[2019-01-25] MEDS ORDERED: TYLENOL PO ONE (07:52)
[2019-01-25] MEDS ORDERED: DECADRON IM ONE (07:53)
== END 2019-01-25 08:29 | disposition home or self-care (01) ==
LOC: ED 04:43
DX: J02.9 Acute pharyngitis, unspecified (principal); J45.909 Unspecified asthma, uncomplicated; Z88.5 Allergy status to narcotic agent; Z79.899 Other long term (current) drug therapy
CPT/HCPCS: 71045; 93005; 93010; 96372; 99283; J1100

== ENCOUNTER 2019-05-07 08:13 | Inpatient (IN) | payer MEDICAID, OTHER ==
[2019-05-07] MEDS ORDERED: ASPIRIN PO ONE (08:24)
--- NOTE | 2019-05-07 08:41 | Emergency Department Report ---
ED Chest Pain HPI - General Chief Complaint: Chest Pain Stated Complaint: CHEST PAIN/LFT ARM TINGLE/SOB/ Time Seen by Provider: 05/07/19 08:37 Source: patient Mode of arrival: Ambulatory Limitations: No Limitations - History of Present Illness Initial Comments: 29-year-old -Guyanese female patient with history of epilepsy presents with complaints of left-sided chest pain radiating down her left arm for the past 3 days and possible seizure this morning. She describes the pain as stabbing and pressure and rates it a 8 out of 10 in severity. She denies any history of NV/CVA/DVT/PE, recent long travel, leg swelling. She does admit to mild bilateral lower leg pain, however states this is normal after a seizure. Denies OCPs. Patient states she was taken off Keppra and Dilantin 7 months ago while breast-feeding. He was found by her on the kitchen floor and the last thing she remembered was making coffee. She is complaining of right-sided head pain and blurry vision. MD Complaint: chest pain -: Sudden, days(s) Pain Location: left chest Pain Radiation: LUE, back Severity: severe Severity scale (0 -10): 8 Quality: sharp, pressure Consistency: constant Improves With: nothing Worsens With: nothing Other Symptoms: denies: cough, fever - Related Data Home Medications Medication Instructions Recorded Confirmed Last Taken Albuterol Sulfate [Ventolin HFA] 1 - 2 puff IH Q6H PRN 01/16/18 04/26/18 Unknown Ferrous Sulfate [Iron 325 MG] 325 mg PO DAILY 01/16/18 04/26/18 Unknown lamoTRIgine [LaMICtal] 25 mg PO HS 04/26/18 04/26/18 04/25/18 20:00 Previous Rx's Medication Instructions Recorded Last Taken Type Betamet Acet/Betamet Na pH 12 mg IM Q24HR vial 03/30/18 Unknown Rx [Celestone Soluspan] Vit-Fe Fumar-FA [ 1 each PO QDAY tablet 03/30/18 Unknown Rx Vitamin] Amoxicillin [Trimox CAP] 500 mg PO BID #20 capsule 01/25/19 Unknown Rx Allergies Allergy/AdvReac Type Severity Reaction Status Date / Time ceftriaxone [From Rocephin] Allergy Swelling Verified 01/16/18 15:24 morphine Allergy Shortness Verified 01/16/18 15:34 of Breath turbutaline Allergy Shortness Uncoded 10/11/17 09:53 of Breath Heart Score - HEART Score History: Slightly suspicious EKG: Normal Age: < 45 Risk factors: 1-2 risk factors Troponin: < normal limit HEART Score: 1 - Critical Actions Critical Actions: 0-3 pts:0.9-1.7%risk of adverse cardiac event.Candidate for discharge ED Review of Systems ROS: Stated complaint: CHEST PAIN/LFT ARM TINGLE/SOB/ Other details as noted in HPI Constitutional: denies: chills, fever, malaise, weakness Eyes: vision change (blurry). denies: eye pain, eye discharge Respiratory: denies: cough, shortness of breath, SOB with exertion, SOB at rest, wheezing Cardiovascular: chest pain, syncope. denies: palpitations, dyspnea on exertion Gastrointestinal: denies: abdominal pain, nausea, diarrhea Neurological: headache, paresthesias. denies: weakness, confusion, abnormal gait Psychiatric: denies: auditory hallucinations, visual hallucinations ED Past Medical Hx - Past Medical History Previous Medical History?: Yes Hx Hypertension: No Hx Congestive Heart Failure: No Hx Diabetes: No Hx Deep Vein Thrombosis: No Hx Renal Disease: No Hx Sickle Cell Disease: No Hx Seizures: Yes (every day seizures, non compliant with meds) Hx Asthma: Yes Hx COPD: No Hx HIV: No - Surgical History Past Surgical History?: Yes Hx Breast Surgery: Yes (reduction) Additional Surgical History: - Social History Smoking Status: Former Smoker Substance Use Type: None - Medications Home Medications: Home Medications Medication Instructions Recorded Confirmed Last Taken Type Albuterol Sulfate [Ventolin HFA] 1 - 2 puff IH Q6H PRN 01/16/18 04/26/18 Unknown History Ferrous Sulfate [Iron 325 MG] 325 mg PO DAILY 01/16/18 04/26/18 Unknown History Betamet Acet/Betamet Na pH 12 mg IM Q24HR vial 03/30/18 04/26/18 Unknown Rx [Celestone Soluspan] Vit-Fe Fumar-FA [ 1 each PO QDAY tablet 03/30/18 04/26/18 Unknown Rx Vitamin] lamoTRIgine [LaMICtal] 25 mg PO HS 04/26/18 04/26/18 04/25/18 20:00 History Amoxicillin [Trimox CAP] 500 mg PO BID #20 capsule 01/25/19 Unknown Rx ED Physical Exam - General Limitations: No Limitations ED Course Vital Signs 05/07/19 05/07/19 05/07/19 08:20 09:26 09:30 Temperature 99.1 F Pulse Rate 70 69 70 Respiratory 18 28 H 13 Rate Blood Pressure 141/87 128/79 O2 Sat by Pulse 100 100 99 Oximetry 05/07/19 05/07/19 05/07/19 09:40 09:50 10:00 Temperature Pulse Rate 70 83 63 Respiratory 12 26 H 12 Rate Blood Pressure 128/79 97/78 119/72 O2 Sat by Pulse 99 100 Oximetry 05/07/19 05/07/19 05/07/19 10:04 10:10 10:20 Temperature Pulse Rate 73 71 Respiratory 12 15 17 Rate Blood Pressure 127/83 138/89 O2 Sat by Pulse 100 100 100 Oximetry 05/07/19 05/07/19 05/07/19 10:30 10:40 10:50 Temperature Pulse Rate 68 78 65 Respiratory 9 L 23 22 Rate Blood Pressure 134/73 118/80 123/87 O2 Sat by Pulse 100 98 Oximetry 05/07/19 05/07/19 05/07/19 11:00 11:10 11:20 Temperature Pulse Rate 82 72 73 Respiratory 21 11 L 12 Rate Blood Pressure 130/77 127/77 126/85 O2 Sat by Pulse 100 99 Oximetry 05/07/19 05/07/19 05/07/19 11:30 11:40 11:50 Temperature Pulse Rate 73 76 66 Respiratory 23 16 28 H Rate Blood Pressure 125/81 127/80 116/74 O2 Sat by Pulse 97 100 99 Oximetry ED Medical Decision Making - Lab Data Result diagrams: 05/07/19 09:25 05/07/19 09:25 Lab Results 05/07/19 05/07/19 05/07/19 Range/Units 09:25 09:25 09:25 WBC 6.0 (4.5-11.0) K/mm3 RBC 4.33 (3.65-5.03) M/mm3 Hgb 12.6 (10.1-14.3) gm/dl Hct 38.5 (30.3-42.9) % MCV 89 (79-97) fl MCH 29 (28-32) pg MCHC 33 (30-34) % RDW 13.6 (13.2-15.2) % Plt Count 196 (140-440) K/mm3 Lymph % (Auto) 25.9 (13.4-35.0) % Bee % (Auto) 5.9 (0.0-7.3) % Eos % (Auto) 1.8 (0.0-4.3) % Baso % (Auto) 0.5 (0.0-1.8) % Lymph # 1.6 (1.2-5.4) K/mm3 Bee # 0.4 (0.0-0.8) K/mm3 Eos # 0.1 (0.0-0.4) K/mm3 Baso # 0.0 (0.0-0.1) K/mm3 Seg Neutrophils % 65.9 (40.0-70.0) % Seg Neutrophils # 4.0 (1.8-7.7) K/mm3 D-Dimer (0-234) ng/mlDDU Sodium 139 (137-145) mmol/L Potassium 4.2 (3.6-5.0) mmol/L Chloride 103.7 (98-107) mmol/L Carbon Dioxide 22 (22-30) mmol/L Anion Gap 18 mmol/L BUN 9 (7-17) mg/dL Creatinine 0.6 L (0.7-1.2) mg/dL Estimated GFR > 60 ml/min BUN/Creatinine Ratio 15 % Glucose 95 (65-100) mg/dL Calcium 8.9 (8.4-10.2) mg/dL Magnesium (1.7-2.3) mg/dL Troponin T < 0.010 (0.00-0.029) ng/mL HCG, Qual Negative (Negative) 05/07/19 05/07/19 Range/Units 09:25 09:25 WBC (4.5-11.0) K/mm3 RBC (3.65-5.03) M/mm3 Hgb (10.1-14.3) gm/dl Hct (30.3-42.9) % MCV (79-97) fl MCH (28-32) pg MCHC (30-34) % RDW (13.2-15.2) % Plt Count (140-440) K/mm3 Lymph % (Auto) (13.4-35.0) % Bee % (Auto) (0.0-7.3) % Eos % (Auto) (0.0-4.3) % Baso % (Auto) (0.0-1.8) % Lymph # (1.2-5.4) K/mm3 Bee # (0.0-0.8) K/mm3 Eos # (0.0-0.4) K/mm3 Baso # (0.0-0.1) K/mm3 Seg Neutrophils % (40.0-70.0) % Seg Neutrophils # (1.8-7.7) K/mm3 D-Dimer 198.77 (0-234) ng/mlDDU Sodium (137-145) mmol/L Potassium (3.6-5.0) mmol/L Chloride (98-107) mmol/L Carbon Dioxide (22-30) mmol/L Anion Gap mmol/L BUN (7-17) mg/dL Creatinine (0.7-1.2) mg/dL Estimated GFR ml/min BUN/Creatinine Ratio % Glucose (65-100) mg/dL Calcium (8.4-10.2) mg/dL Magnesium 2.00 (1.7-2.3) mg/dL Troponin T (0.00-0.029) ng/mL HCG, Qual (Negative) - EKG Data EKG shows normal: sinus rhythm Rate: normal - Radiology Data Radiology results: report reviewed interpreted by me: . CT HEAD WITHOUT CONTRAST INDICATION / CLINICAL INFORMATION: syncope. TECHNIQUE: Axial imaging performed from the skull apex through the skull base without the use of contrast. Sagittal and coronal reformatted images. All CT scans at this location are performed using CT dose reduction for ALARA by means of automated exposure control. COMPARISON: 01/16/2018. FINDINGS: CEREBRAL PARENCHYMA: No significant abnormality. No acute territorial infarct. HEMORRHAGE: None. EXTRA-AXIAL SPACES: Normal in size and morphology for the patient's age. VENTRICULAR SYSTEM: Normal in size and morphology for the patient's age. MIDLINE SHIFT OR HERNIATION: None. CEREBELLUM / BRAINSTEM: No significant abnormality. CALVARIUM: No significant abnormality. ORBITS: Normal as visualized. PARANASAL SINUSES / MASTOID AIR CELLS: Normal as visualized. SOFT TISSUES of HEAD: No significant abnormality. ADDITIONAL FINDINGS: None. IMPRESSION: No acute intracranial abnormality. - Medical Decision Making Patient here with chest pain and possible seizure. Troponin and EKG WNL. Heart score equals 1. Initial seizure observed patient given Ativan IM 2 mg due to not having IV access. Patient again seized and given 1 mg IV Ativan and 1 g of Keppra. Seizure resolved. Third seizure observed patient given another gram of Keppra. Given seizures are uncontrolled patient to be admitted to for observation via Dr. Modi. Magnesium and BMP are WNL. Vitals WNL. Critical care attestation.: If time is entered above; I have spent that time in minutes in the direct care of this critically ill patient, excluding procedure time. ED Disposition Clinical Impression: Seizure disorder Disposition: OP ADMIT IP TO THIS HOSP Is pt being admited?: Yes Condition: Stable
[2019-05-07] MEDS ORDERED: ATIVAN PO ONE (09:31)
[2019-05-07] MEDS ORDERED: ATIVAN IM ONE (09:43)
[2019-05-07] MEDS ORDERED: KEPPRA 1,000 MG/NS 0.75% 100ML 1,000 MG/100 ML BAG IV ONE ×2 (09:44→11:23)
--- NOTE | 2019-05-07 09:44 | Cat Scan Report ---
. CT HEAD WITHOUT CONTRAST INDICATION / CLINICAL INFORMATION: syncope. TECHNIQUE: Axial imaging performed from the skull apex through the skull base without the use of cont rast. Sagittal and coronal reformatted images. All CT scans at this location are performed using CT dose reduction for ALARA by means of automated exposure control. COMPARISON: 01/16/2018. FINDINGS: CEREBRAL PARENCHYMA: No significant abnormality. No acute territorial infarct. HEMORRHAGE: None. EXTRA-AXIAL SPACES: Normal in size and morphology for the patient's age. VENTRICULAR SYSTEM: Normal in size and morphology for the patient's age. MIDLINE SHIFT OR HERNIATION: None. CEREBELLUM / BRAINSTEM: No significant abnormality. CALVARIUM: No significant abnormality. ORBITS: Normal as visualized. PARANASAL SINUSES / MASTOID AIR CELLS: Normal as visualized. SOFT TISSUES of HEAD: No significant abnormality. ADDITIONAL FINDINGS: None. IMPRESSION: No acute intracranial abnormality. Signer Name: Juan Jose Durán Jr, MD Signed: 05/07/2019 9:39 AM Workstation Name: [id number]
[2019-05-07] MEDS ORDERED: ATIVAN ONE (09:47)
[2019-05-07] MEDS ORDERED: ATIVAN IV ONE (09:50)
[2019-05-07 10:00] LABS: Basophils % (Auto) 0.5 % (0.0-1.8); Eosinophils # (Auto) 0.1 K/mm3 (0.0-0.4); Eosinophils % (Auto) 1.8 % (0.0-4.3); Hematocrit 38.5 % (30.3-42.9); Hemoglobin 12.6 gm/dl (10.1-14.3); Lymphocytes # (Auto) 1.6 K/mm3 (1.2-5.4); Lymphocytes % (Auto) 25.9 % (13.4-35.0); Mean Corpuscular HGB Conc 33 % (30-34); Mean Corpuscular Volume 89 fl (79-97); Monocytes # (Auto) 0.4 K/mm3 (0.0-0.8); Monocytes % (Auto) 5.9 % (0.0-7.3); Platelet Count 196 K/mm3 (140-440); Red Blood Count 4.33 M/mm3 (3.65-5.03); Red Cell Distribution Width 13.6 % (13.2-15.2)
[2019-05-07 10:20] LABS: BUN/Creatinine Ratio 15; Blood Urea Nitrogen 9 mg/dL (7-17); Calcium 8.9 mg/dL (8.4-10.2); Hemolysis Index 6
[2019-05-07] MEDS ORDERED: PERCOCET 5/325 PO ONE (10:27)
[2019-05-07] MEDS ORDERED: NACL 0.9% 1000 ML 1,000 ML IV ONE (11:04)
[2019-05-07] MEDS ORDERED: KEPPRA 1,000 MG in D5W 100 ML IV ONE (11:06)
--- NOTE | 2019-05-07 11:09 | XRay Report ---
CHEST 1 VIEW INDICATION: Chest Pain. COMPARISON: 01/25/2019 FINDINGS: Support devices: None. Heart: Within normal limits. Lungs/Pleura: No acute air space or interstitial disease. Additional findings: None. IMPRESSION: No acute findings. Signer Name: Juan Jose Durán Jr, MD Signed: 05/07/2019 11:04 AM Workstation Name: [id number]
[2019-05-07 11:48] LABS: Bilirubin,Urine Negative (Negative); Blood,Urine Negative (Negative); Color,Urine Yellow (Yellow); Protein,Urine <15 mg/dL mg/dL (Negative); Urobilinogen,Urine < 2.0 mg/dL (<2.0)
[2019-05-07 11:51] LABS: Bacteria,Urine 1+ /HPF (Negative)
[2019-05-07 11:52] LABS: WBC,Urine < 1.0 /HPF (0.0-6.0)
[2019-05-07 11:55] LABS: Amphetamine Screen,Urine PRESUMPTIVE NEGATIVE; Benzodiazepines Screen,Urine PRESUMPTIVE NEGATIVE; Cocaine Screen,Urine PRESUMPTIVE NEGATIVE; Methadone Screen,Urine PRESUMPTIVE NEGATIVE; Opiate Screen,Urine PRESUMPTIVE NEGATIVE
[2019-05-07 12:17] LABS: Cannabinoid Screen,Urine PRESUMPTIVE POSITIVE
--- NOTE | 2019-05-07 15:29 | History and Physical Report ---
History of Present Illness Date of examination: 05/07/19 Date of admission: 05/07/19 11:41 Medications and Allergies Allergies Allergy/AdvReac Type Severity Reaction Status Date / Time ceftriaxone [From Rocephin] Allergy Swelling Verified 01/16/18 15:24 morphine Allergy Shortness Verified 01/16/18 15:34 of Breath turbutaline Allergy Shortness Uncoded 10/11/17 09:53 of Breath Home Medications Medication Instructions Recorded Confirmed Last Taken Type Albuterol Sulfate [Ventolin HFA] 1 - 2 puff IH Q6H PRN 01/16/18 04/26/18 Unknown History Ferrous Sulfate [Iron 325 MG] 325 mg PO DAILY 01/16/18 04/26/18 Unknown History Betamet Acet/Betamet Na pH 12 mg IM Q24HR vial 03/30/18 04/26/18 Unknown Rx [Celestone Soluspan] Vit-Fe Fumar-FA [ 1 each PO QDAY tablet 03/30/18 04/26/18 Unknown Rx Vitamin] lamoTRIgine [LaMICtal] 25 mg PO HS 04/26/18 04/26/18 04/25/18 20:00 History Amoxicillin [Trimox CAP] 500 mg PO BID #20 capsule 01/25/19 Unknown Rx Exam - Constitutional Vitals: Temp Pulse Resp BP Pulse Ox 97.8 F 93 H 20 113/73 99 05/07/19 14:52 05/07/19 14:52 05/07/19 14:52 05/07/19 14:52 05/07/19 14:52 Results - Labs CBC & Chem 7: 05/07/19 09:25 05/07/19 09:25 Labs: Laboratory Last Values WBC 6.0 K/mm3 (4.5-11.0) 05/07/19 09:25 RBC 4.33 M/mm3 (3.65-5.03) 05/07/19 09:25 Hgb 12.6 gm/dl (10.1-14.3) 05/07/19 09:25 Hct 38.5 % (30.3-42.9) 05/07/19 09:25 MCV 89 fl (79-97) 05/07/19 09:25 MCH 29 pg (28-32) 05/07/19 09:25 MCHC 33 % (30-34) 05/07/19 09:25 RDW 13.6 % (13.2-15.2) 05/07/19 09:25 Plt Count 196 K/mm3 (140-440) 05/07/19 09:25 Lymph % (Auto) 25.9 % (13.4-35.0) 05/07/19 09:25 Power % (Auto) 5.9 % (0.0-7.3) 05/07/19 09:25 Eos % (Auto) 1.8 % (0.0-4.3) 05/07/19 09:25 Baso % (Auto) 0.5 % (0.0-1.8) 05/07/19 09:25 Lymph # 1.6 K/mm3 (1.2-5.4) 05/07/19 09:25 Power # 0.4 K/mm3 (0.0-0.8) 05/07/19 09:25 Eos # 0.1 K/mm3 (0.0-0.4) 05/07/19 09:25 Baso # 0.0 K/mm3 (0.0-0.1) 05/07/19 09:25 Seg Neutrophils % 65.9 % (40.0-70.0) 05/07/19 09:25 Seg Neutrophils # 4.0 K/mm3 (1.8-7.7) 05/07/19 09:25 D-Dimer 198.77 ng/mlDDU (0-234) 05/07/19 09:25 Sodium 139 mmol/L (137-145) 05/07/19 09:25 Potassium 4.2 mmol/L (3.6-5.0) 05/07/19 09:25 Chloride 103.7 mmol/L (98-107) 05/07/19 09:25 Carbon Dioxide 22 mmol/L (22-30) 05/07/19 09:25 Anion Gap 18 mmol/L 05/07/19 09:25 BUN 9 mg/dL (7-17) 05/07/19 09:25 Creatinine 0.6 mg/dL (0.7-1.2) L 05/07/19 09:25 Estimated GFR > 60 ml/min 05/07/19 09:25 BUN/Creatinine Ratio 15 % 05/07/19 09:25 Glucose 95 mg/dL (65-100) 05/07/19 09: Calcium 8.9 mg/dL (8.4-10.2) 05/07/19 09: Magnesium 2.00 mg/dL (1.7-2.3) 05/07/19 09:25 Troponin T < 0.010 ng/mL (0.00-0.029) 05/07/19 12:03 HCG, Qual Negative (Negative) 05/07/19 09:25 Urine Color Yellow (Yellow) 05/07/19 11:34 Urine Turbidity Clear (Clear) 05/07/19 11:34 Urine pH 7.0 (5.0-7.0) 05/07/19 11:34 Ur Specific [place] 1.005 (1.003-1.030) 05/07/19 11:34 Urine Protein <15 mg/dl mg/dL (Negative) 05/07/19 11:34 Urine Glucose (UA) Negative mg/dL (Negative) 05/07/19 11:34 Urine Ketones Negative mg/dL (Negative) 05/07/19 11:34 Urine Blood Negative (Negative) 05/07/19 11:34 Urine Nitrite Negative (Negative) 05/07/19 11:34 Urine Bilirubin Negative (Negative) 05/07/19 11:34 Urine Urobilinogen < 2.0 mg/dL (<2.0) 05/07/19 11:34 Ur Leukocyte Esterase Negative (Negative) 05/07/19 11:34 Urine WBC (Auto) < 1.0 /HPF (0.0-6.0) 05/07/19 11:34 Urine RBC (Auto) 1.0 /HPF (0.0-6.0) 05/07/19 11:34 U Epithel Cells (Auto) < 1.0 /HPF (0-13.0) 05/07/19 11:34 Urine Bacteria (Auto) 1+ /HPF (Negative) 05/07/19 11:34 Urine Opiates Screen Presumptive negative 05/07/19 11:34 Urine Methadone Screen Presumptive negative 05/07/19 11:34 Ur Barbiturates Screen Presumptive negative 05/07/19 11:34 Ur Phencyclidine Scrn Presumptive negative 05/07/19 11:34 Ur Amphetamines Screen Presumptive negative 05/07/19 11:34 U Benzodiazepines Scrn Presumptive negative 05/07/19 11:34 Urine Cocaine Screen Presumptive negative 05/07/19 11:34 U Marijuana (THC) Screen Presumptive positive 05/07/19 11:34 Drugs of Abuse Note Disclamer 05/07/19 11:34
[2019-05-07] MEDS ORDERED: AMBIEN PO PRN (15:31)
[2019-05-07] MEDS ORDERED: PERCOCET 5/325 PO PRN (15:31)
[2019-05-07] MEDS ORDERED: REGLAN IV PRN (15:31)
[2019-05-07] MEDS ORDERED: DILAUDID IV PRN (15:31)
[2019-05-07] MEDS ORDERED: TYLENOL PO PRN (15:31)
[2019-05-07] MEDS ORDERED: SODIUM CHLORIDE FLUSH SYRINGE 10 ML IV PRN (15:31)
[2019-05-07] MEDS ORDERED: D5NS 1,000 ML IV SCH (16:00)
[2019-05-07] MEDS: ZOFRAN IV PRN (16:59)
[2019-05-07] MEDS: SODIUM CHLORIDE FLUSH SYRINGE 10 ML IV SCH ×2 (16:59→21:23)
[2019-05-07] MEDS: PEPCID PO SCH ×2 (17:01→21:23)
[2019-05-07] MEDS: KEPPRA 750 MG in D5W 100 ML IV SCH ×2 (18:02→21:24)
--- NOTE | 2019-05-07 20:18 | Consultation ---
History of Present Illness Consult date: 05/07/19 Reason for Consult: Seizure Chief complaint: Seizure History of present illness: Patient is a 29 y/o woman w/ a h/o epilepsy, asthma. She has been having seizures since about 2006, which are described as being GTC in nature, however she also describes seizures during which she does not completely lose consciousness. Patient p/w chest pain, which began about 3 days ago, and is described as being left sided, and radiation to LUE. She states that she was making coffee at home this morning, when she had a seizure. Patient then came to [facility], where she was noted to have another seizure in the ER. Patient was given ativan and keppra IV, after which the seizure ultimately resolved. She had previously been taking keppra, however had not taken any seizure medications in the past 6 months, as she was her child, and was told by per primary neurologist that she can stop all AEDs. Patient had also reportedly been taking dilantin and lamictal in the past. Past History Past Medical History: seizures, other (asthma) Social history: lives with family Family history: no significant family history Medications and Allergies Allergies Allergy/AdvReac Type Severity Reaction Status Date / Time ceftriaxone [From Rocephin] Allergy Swelling Verified 01/16/18 15:24 morphine Allergy Shortness Verified 01/16/18 15:34 of Breath turbutaline Allergy Shortness Uncoded 10/11/17 09:53 of Breath Home Medications Medication Instructions Recorded Confirmed Last Taken Type Albuterol Sulfate [Ventolin HFA] 1 - 2 puff IH Q6H PRN 01/16/18 04/26/18 Unknown History Ferrous Sulfate [Iron 325 MG] 325 mg PO DAILY 01/16/18 04/26/18 Unknown History Betamet Acet/Betamet Na pH 12 mg IM Q24HR vial 03/30/18 04/26/18 Unknown Rx [Celestone Soluspan] Vit-Fe Fumar-FA [ 1 each PO QDAY tablet 03/30/18 04/26/18 Unknown Rx Vitamin] lamoTRIgine [LaMICtal] 25 mg PO HS 04/26/18 04/26/18 04/25/18 20:00 History Amoxicillin [Trimox CAP] 500 mg PO BID #20 capsule 01/25/19 Unknown Rx Active Meds: Active Medications Acetaminophen (Tylenol) 650 mg PO Q4H PRN PRN Reason: Pain MILD(1-3)/Fever >100.5/TAFOYA Famotidine (Pepcid) 20 mg PO BID [facility] Last Admin: 05/07/19 17:01 Dose: 20 mg Documented by: Hydromorphone HCl (Dilaudid) 0.5 mg IV Q3H PRN PRN Reason: Pain , Severe (7-10) Last Admin: 05/07/19 16:56 Dose: 0.5 mg Documented by: Dextrose/Sodium Chloride (D5ns) 1,000 mls @ 100 mls/hr IV DIRECT [facility] Levetiracetam 750 mg/ Dextrose 107.5 mls @ 400 mls/hr IV Q12HR [facility] Last Admin: 05/07/19 18:02 Dose: 400 mls/hr Documented by: Metoclopramide HCl (Reglan) 10 mg IV Q6H PRN PRN Reason: Nausea And Vomiting Last Admin: 05/07/19 18:34 Dose: 10 mg Documented by: Ondansetron HCl (Zofran) 4 mg IV Q8H PRN PRN Reason: Nausea And Vomiting Last Admin: 05/07/19 16:59 Dose: 4 mg Documented by: Oxycodone/Acetaminophen (Percocet 5/325) 1 tab PO Q6H PRN PRN Reason: Pain, Moderate (4-6) Sodium Chloride (Sodium Chloride Flush Syringe 10 Ml) 10 ml IV BID [facility] Last Admin: 05/07/19 16:59 Dose: 10 ml Documented by: Sodium Chloride (Sodium Chloride Flush Syringe 10 Ml) 10 ml IV PRN PRN PRN Reason: LINE FLUSH Zolpidem Tartrate (Ambien) 5 mg PO QHS PRN PRN Reason: Insomnia Review of Systems All systems: negative Cardiovascular: chest pain Neurological: seizures Physical Examination - Vital Signs Vital Signs: Vital Signs Temp Pulse Resp BP Pulse Ox 99.1 F 70 18 141/87 100 05/07/19 08:20 05/07/19 08:20 05/07/19 08:20 05/07/19 08:20 05/07/19 08:20 - Physical Exam Narrative exam: Patient is alert, awake, oriented x4, follows complex commands. No dysarthria or aphasia noted. PERRL, EOMI, VFF, no facial weakness noted, tongue midline, b/l intact to LT. 5/5 strength in RUE/RLE, 3/5 strength in LUE/LLE whch is limited due to pain. 2+ reflexes throughout. Decreased sensation to LT in LUE/LLE. b/l intact to HTS and FTN. - Constitutional General appearance: comfortable - EENT EENT: Present: ATNC, PERRL, mucous membranes moist, hearing intact, vision intact - Respiratory Respiratory: Present: lungs clear, normal breath sounds - Cardiovascular Cardiovascular: Present: regular rate, normal S1, normal S2 Extremities: Present: no clubbing, cyanosis, no inflammation - Gastrointestinal Gastrointestinal: Present: normoactive bowel sounds, soft, non-tender - Integumentary Integumentary: Present: normal - Musculoskeletal Musculoskeletal: Present: normal range of motion - Psychiatric Psychiatric: Present: mood/affect appropriate Results - Laboratory Findings CBC and BMP: 05/07/19 09:25 05/07/19 09:25 Abnormal Lab Findings: Abnormal Labs 05/07/19 09:25 Creatinine 0.6 L Assessment and Plan Patient is a 29 y/o woman w/ a h/o epilepsy, asthma, p/w chest pain and seizures. According to the patient's clinical findings, it is likely that she h as had seizures. Patient was previously taking AEDs, however these were stopped 6 months ago as patient was her child Plan: 1. Seizure: - Start patient on keppra 750mg BID - Discussed with patient regarding risks/benefits of starting keppra, including risk to fetus during . Patient stated that she would rather start taking keppra regularly, and could feed her child through alternative means. - Further discussed regarding no driving until cleared by DMV/DPS. Patient u nderstood and accepted this. Also discussed further seizure precautions. - Recommend MRI brain and cervical spine, as patient has decreased sensations in LUE/LLE, which is new-onset for past 2-3 days. - Recommend further workup of chest pain per primary team. - If patient begins to have frequent seizures, she may require to be transferred to facility with continuous EEG capabilities, as this facility does not have capability to perform EEGs over the weekend. - If patient has seizure, recommend giving 1mg ativan stat. Please call primary and neurology stat if patient has any seizures. - Will sign off, as I am not covering neurology service over the weekend. Recommend for neurologist covering service over the weekend to be consulted for further neurologic monitoring and management. Thank you for allowing me to take part in the care of this patient. Estrada Juarez MD Neurology
[2019-05-08 05:41] LABS: Basophils % (Auto) 0.4 % (0.0-1.8); Eosinophils # (Auto) 0.1 K/mm3 (0.0-0.4); Eosinophils % (Auto) 1.6 % (0.0-4.3); Hematocrit 34.5 % (30.3-42.9); Hemoglobin 11.3 gm/dl (10.1-14.3); Lymphocytes # (Auto) 1.5 K/mm3 (1.2-5.4); Lymphocytes % (Auto) 27.9 % (13.4-35.0); Mean Corpuscular HGB Conc 33 % (30-34); Mean Corpuscular Volume 90 fl (79-97); Monocytes # (Auto) 0.4 K/mm3 (0.0-0.8); Monocytes % (Auto) 6.9 % (0.0-7.3); Platelet Count 167 K/mm3 (140-440); Red Blood Count 3.85 M/mm3 (3.65-5.03); Red Cell Distribution Width 13.4 % (13.2-15.2)
[2019-05-08 05:59] LABS: Alanine Aminotransferase 13 units/L (7-56); Albumin 3.9 g/dL (3.9-5); BUN/Creatinine Ratio 12; Blood Urea Nitrogen 6 mg/dL (7-17); Calcium 8.5 mg/dL (8.4-10.2); Hemolysis Index 6
--- NOTE | 2019-05-08 06:46 | Event Note ---
Date: 05/07/19 See H/p in reports Seizures after one year Not on any AED's Chest pain r/o OR protocol IV Keppra to transition to PO Keppra Stress test in AM--Treadmill
--- NOTE | 2019-05-08 08:50 | History and Physical Report ---
CHIEF COMPLAINT: Seizures after 1 year. HISTORY OF PRESENT ILLNESS: A 29-year-old -Spanish female with a history of asthma and iron deficiency anemia presents with generalized tonic-clonic seizures since a.m. One episode. The patient has been also having chest pain for the last 2-3 days which is intermittent in nature. Retrosternal, nonradiating. No diaphoresis, no shortness of breath. The patient was making coffee at home this morning when she had generalized tonic-clonic seizures. The patient has not been taking her seizure medications for the past 6 months on the advice of her PCP because she was her child. The patient was taking Dilantin and Lamictal in the past. PAST MEDICAL HISTORY: Seizures and asthma. FAMILY HISTORY: No significant family history. SOCIAL HISTORY: Lives with family. Does not smoke. No alcohol, no recreational drugs. PAST SURGICAL HISTORY: None. REVIEW OF SYSTEMS: Significant for seizures and chest pain. Otherwise, review of systems negative. A 14-point review of systems done. PHYSICAL EXAMINATION: GENERAL: Young female, cooperative during examination. VITAL SIGNS: Blood pressure is 118/72, temperature 97.8, pulse is 64, respirations are 23, sats 100%. HEENT: Unremarkable. Pupils equal and reactive. NECK: Supple. No lymphadenopathy, no thyromegaly. LUNGS: Clear to auscultation and percussion. Good air entry. CARDIOVASCULAR: S1, S2 heard. No gallop, no murmur, no rub. Apical impulse in left fifth intercostal space and midclavicular line. ABDOMEN: Soft and benign. No hepatosplenomegaly. No guarding, no rigidity. Hernial orifices are normal. EXTREMITIES: Good pedal pulses. No pedal edema. IMAGING AND LABORATORY STUDIES: CBC is normal. Electrolytes are normal. Urine normal. Drug screen positive for marijuana. EKG normal sinus rhythm. No acute ST-T wave changes. Heart rate of [address], no acute findings. Chest x-ray no acute findings. ASSESSMENT AND PLAN: 1. Seizure disorder. The patient needs to be on anti-seizure medication for lifelong. Neurology consult requested. The patient started on IV Keppra 750 q. 12. The patient to be transitioned to p.o. Keppra. 2. Chest pain, rule out myocardial infarction, chest pain protocol. Treadmill stress test ordered. Serial troponins ordered. 3. Asthma, inhalers on a p.r.n. basis. 4. Deep venous thrombosis prophylaxis, Lovenox 40 mg subcutaneous daily. JOB# [id number] [facility]
--- NOTE | 2019-05-08 09:12 | Progress Note ---
Assessment and Plan Assessment and plan: --Atypical chest pain; resolved Cardiology evaluated the patient, no plans of ischemia workup at this point Advised to follow outpatient if needed Cleared by cardiology for discharge --Seizures; Seizure precautions, continue Keppra MRI negative to date, patient refused MRI cervical spine No driving until cleared by PCP/urology Patient may need outpatient follow-up with optician apprentice dispensing urologist upon discharge --DVT prophylaxis; Lovenox --Advised the; BMI 32.9 Advise weight reduction Neurology consult and recommendations noted and appreciated Monitor clinically and adjust management as needed Plan of care is reviewed with the patient and her nurse Possible discharge home tomorrow if stable History Interval history: Patient seen and examined medical records reviewed No new episodes of seizures since admission Cardiology evaluated the patient no further workup recommended Vital signs noted Hospitalist Physical - Constitutional Vitals: Temp Pulse Resp BP Pulse Ox 97.9 F 66 18 127/67 100 05/08/19 05:36 05/08/19 05:36 05/08/19 05:36 05/08/19 05:36 05/08/19 05:36 General appearance: Present: no acute distress, well-nourished - EENT Eyes: Present: PERRL, EOM intact - Neck Neck: Present: supple, normal ROM - Respiratory Respiratory effort: normal Respiratory: bilateral: diminished, rhonchi, negative: rales, wheezing - Cardiovascular Rhythm: regular Heart Sounds: Present: S1 & S2 - Extremities Extremities: no ischemia, pulses intact, pulses symmetrical - Abdominal General gastrointestinal: soft, non-tender, non-distended, normal bowel sounds - Integumentary Integumentary: Present: clear, warm - Psychiatric Psychiatric: appropriate mood/affect, cooperative - Neurologic Neurologic: CNII-XII intact, moves all extremities Results - Labs CBC & Chem 7: 05/08/19 04:53 05/08/19 04:53 Labs: Laboratory Last Values WBC 5.5 K/mm3 (4.5-11.0) 05/08/19 04:53 RBC 3.85 M/mm3 (3.65-5.03) 05/08/19 04:53 Hgb 11.3 gm/dl (10.1-14.3) 05/08/19 04:53 Hct 34.5 % (30.3-42.9) 05/08/19 04:53 MCV 90 fl (79-97) 05/08/19 04:53 MCH 29 pg (28-32) 05/08/19 04:53 MCHC 33 % (30-34) 05/08/19 04:53 RDW 13.4 % (13.2-15.2) 05/08/19 04:53 Plt Count 167 K/mm3 (140-440) 05/08/19 04:53 Lymph % (Auto) 27.9 % (13.4-35.0) 05/08/19 04:53 [place] % (Auto) 6.9 % (0.0-7.3) 05/08/19 04:53 Eos % (Auto) 1.6 % (0.0-4.3) 05/08/19 04:53 Baso % (Auto) 0.4 % (0.0-1.8) 05/08/19 04:53 Lymph # 1.5 K/mm3 (1.2-5.4) 05/08/19 04:53 [place] # 0.4 K/mm3 (0.0-0.8) 05/08/19 04:53 Eos # 0.1 K/mm3 (0.0-0.4) 05/08/19 04:53 Baso # 0.0 K/mm3 (0.0-0.1) 05/08/19 04:53 Seg Neutrophils % 63.2 % (40.0-70.0) 05/08/19 04:53 Seg Neutrophils # 3.5 K/mm3 (1.8-7.7) 05/08/19 04:53 D-Dimer 198.77 ng/mlDDU (0-234) 05/07/19 09:25 Sodium 139 mmol/L (137-145) 05/08/19 04:53 Potassium 3.8 mmol/L (3.6-5.0) 05/08/19 04:53 Chloride 105.9 mmol/L (98-107) 05/08/19 04:53 Carbon Dioxide 23 mmol/L (22-30) 05/08/19 04:53 Anion Gap 14 mmol/L 05/08/19 04:53 BUN 6 mg/dL (7-17) L 05/08/19 04:53 Creatinine 0.5 mg/dL (0.7-1.2) L 05/08/19 04:53 Estimated GFR > 60 ml/min 05/08/19 04:53 BUN/Creatinine Ratio 12 % 05/08/19 04:53 Glucose 105 mg/dL (65-100) H 05/08/19 04:53 Hemoglobin A1c 5.3 % (4-6) 05/07/19 16:50 Calcium 8.5 mg/dL (8.4-10.2) 05/08/19 04:53 Magnesium 2.00 mg/dL (1.7-2.3) 05/07/19 09:25 Total Bilirubin 0.30 mg/dL (0.1-1.2) 05/08/19 04:53 AST 20 units/L (5-40) 05/08/19 04:53 ALT 13 units/L (7-56) 05/08/19 04:53 Alkaline Phosphatase 76 units/L (35-129) 05/08/19 04:53 Troponin T < 0.010 ng/mL (0.00-0.029) 05/07/19 20:07 Total Protein 6.8 g/dL (6.3-8.2) 05/08/19 04:53 Albumin 3.9 g/dL (3.9-5) 05/08/19 04:53 Albumin/Globulin Ratio 1.3 % 05/08/19 04:53 HCG, Qual Negative (Negative) 05/07/19 09:25 Urine Color Yellow (Yellow) 05/07/19 11:34 Urine Turbidity Clear (Clear) 05/07/19 11:34 Urine pH 7.0 (5.0-7.0) 05/07/19 11:34 Ur Specific [place] 1.005 (1.003-1.030) 05/07/19 11:34 Urine Protein <15 mg/dl mg/dL (Negative) 05/07/19 11:34 Urine Glucose (UA) Negative mg/dL (Negative) 05/07/19 11:34 Urine Ketones Negative mg/dL (Negative) 05/07/19 11:34 Urine Blood Negative (Negative) 05/07/19 11:34 Urine Nitrite Negative (Negative) 05/07/19 11:34 Urine Bilirubin Negative (Negative) 05/07/19 11:34 Urine Urobilinogen < 2.0 mg/dL (<2.0) 05/07/19 11:34 Ur Leukocyte Esterase Negative (Negative) 05/07/19 11:34 Urine WBC (Auto) < 1.0 /HPF (0.0-6.0) 05/07/19 11:34 Urine RBC (Auto) 1.0 /HPF (0.0-6.0) 05/07/19 11:34 U Epithel Cells (Auto) < 1.0 /HPF (0-13.0) 05/07/19 11:34 Urine Bacteria (Auto) 1+ /HPF (Negative) 05/07/19 11:34 Urine Opiates Screen Presumptive negative 05/07/19 11:34 Urine Methadone Screen Presumptive negative 05/07/19 11:34 Ur Barbiturates Screen Presumptive negative 05/07/19 11:34 Ur Phencyclidine Scrn Presumptive negative 05/07/19 11:34 Ur Amphetamines Screen Presumptive negative 05/07/19 11:34 U Benzodiazepines Scrn Presumptive negative 05/07/19 11:34 Urine Cocaine Screen Presumptive negative 05/07/19 11:34 U Marijuana (THC) Screen Presumptive positive 05/07/19 11:34 Drugs of Abuse Note Disclamer 05/07/19 11:34 Active Medications - Current Medications Current Medications: Generic Name Dose Route Start Last Admin Trade Name Freq PRN Reason Stop Dose Admin Acetaminophen 650 mg 05/07/19 15:31 Tylenol PO Q4H PRN Pain MILD(1-3)/Fever >100.5/TAFOYA Famotidine 20 mg 05/07/19 16:00 05/07/19 21:23 Pepcid PO 20 mg BID MOON Administration Hydromorphone HCl 0.5 mg 05/07/19 15:31 05/07/19 16:56 Dilaudid IV 0.5 mg Q3H PRN Administration Pain , Severe (7-10) Dextrose/Sodium Chloride 1,000 mls @ 100 mls/hr 05/07/19 16:00 05/08/19 08:04 D5ns IV 100 mls/hr DIRECT MOON Administration Levetiracetam 750 mg/ Dextrose 107.5 mls @ 400 mls/hr 05/07/19 16:00 05/07/19 21:24 IV 400 mls/hr Q12HR MOON Administration Metoclopramide HCl 10 mg 05/07/19 15:31 05/07/19 18:34 Reglan IV 10 mg Q6H PRN Administration Nausea And Vomiting Ondansetron HCl 4 mg 05/07/19 15:31 05/07/19 16:59 Zofran IV 4 mg Q8H PRN Administration Nausea And Vomiting Oxycodone/Acetaminophen 1 tab 05/07/19 15:31 Percocet 5/325 PO Q6H PRN Pain, Moderate (4-6) Sodium Chloride 10 ml 05/07/19 16:00 05/07/19 21:23 Sodium Chloride Flush Syringe 10 Ml IV 10 ml BID MOON Administration Sodium Chloride 10 ml 05/07/19 15:31 Sodium Chloride Flush Syringe 10 Ml IV PRN PRN LINE FLUSH Zolpidem Tartrate 5 mg 05/07/19 15:31 Ambien PO QHS PRN Insomnia
[2019-05-08] MEDS: KEPPRA 750 MG in D5W 100 ML IV SCH (11:12)
[2019-05-08] MEDS: PEPCID PO SCH ×2 (11:12→21:20)
[2019-05-08] MEDS: ZOFRAN IV PRN (11:16)
[2019-05-08] MEDS: SODIUM CHLORIDE FLUSH SYRINGE 10 ML IV SCH ×2 (11:18→21:21)
--- NOTE | 2019-05-08 11:25 | Magnetic Resonance Report ---
MRI BRAIN WITHOUT CONTRAST INDICATION / CLINICAL INFORMATION: left sided numbness. TECHNIQUE: Multiplanar, multisequence MR images of the brain were obtained. COMPARISON: Head CT done on 05/07/2019. FINDINGS: BRAIN / INTRACRANIAL CONTENTS: No acute ischemia, acute hemorrhage, mass effect, midline shift, or hy drocephalus. No chronic infarct or significant atrophy. No significant demyelinating changes. Overal l normal ventricular and cisternal size for age. CRANIOCERVICAL JUNCTION: No significant abnormality. VASCULAR FLOW-VOIDS: No significant abnormality. ORBITS: No significant abnormality of visualized orbits. SINUSES / MASTOIDS: No significant abnormality of visualized sinuses and mastoid air cells. ADDITIONAL FINDINGS: None. IMPRESSION: 1. No acute or concerning intracranial abnormality. No adverse change from previous exams. Signer Name: Tanvir Woods MD Signed: 05/08/2019 11:21 AM Workstation Name: [id number]
--- NOTE | 2019-05-08 11:54 | Consultation ---
History of Present Illness Consult date: 05/08/19 Consult reason: chest pain History of present illness: The patient is a 29-year-old woman who presented to the hospital with atypical chest pain. She describes a single episode of left-sided chest pain which occurred while she was lifting a coffeepot in her kitchen. Following the sudden chest pain, she reports that she experienced a brief period of lightheadedness. There was no palpitations. She does have a history of seizure disorder, and currently not on her antiseizure medications, but denies having observed tonic clonic muscle activity. There is no prior cardiac history. She is very active in her daily life, and tafoya s no complaints of exercise intolerance, exertional chest pain, shortness of breath or lower extremity edema. She did a a year ago, and currently is still breast-feeding. EKG is normal sinus rhythm, no acute changes, essentially normal ECG. Since her presentation, there has been no further symptoms. She currently states that she feels well and wants to go home. Past History Past Medical History: seizures, other (asthma) Social history: lives with family Family history: no significant family history Medications and Allergies Allergies Allergy/AdvReac Type Severity Reaction Status Date / Time ceftriaxone [From Rocephin] Allergy Swelling Verified 01/16/18 15:24 morphine Allergy Shortness Verified 01/16/18 15:34 of Breath turbutaline Allergy Shortness Uncoded 10/11/17 09:53 of Breath Home Medications Medication Instructions Recorded Confirmed Last Taken Type Albuterol Sulfate [Ventolin HFA] 1 - 2 puff IH Q6H PRN 01/16/18 04/26/18 Unknown History Ferrous Sulfate [Iron 325 MG] 325 mg PO DAILY 01/16/18 04/26/18 Unknown History Betamet Acet/Betamet Na pH 12 mg IM Q24HR vial 03/30/18 04/26/18 Unknown Rx [Celestone Soluspan] Vit-Fe Fumar-FA [ 1 each PO QDAY tablet 03/30/18 04/26/18 Unknown Rx Vitamin] lamoTRIgine [LaMICtal] 25 mg PO HS 04/26/18 04/26/18 04/25/18 20:00 History Amoxicillin [Trimox CAP] 500 mg PO BID #20 capsule 01/25/19 Unknown Rx Active Meds: Active Medications Acetaminophen (Tylenol) 650 mg PO Q4H PRN PRN Reason: Pain MILD(1-3)/Fever >100.5/TAFOYA Famotidine (Pepcid) 20 mg PO BID [facility] Last Admin: 05/08/19 11:12 Dose: 20 mg Documented by: Hydromorphone HCl (Dilaudid) 0.5 mg IV Q3H PRN PRN Reason: Pain , Severe (7-10) Last Admin: 05/07/19 16:56 Dose: 0.5 mg Documented by: Dextrose/Sodium Chloride (D5ns) 1,000 mls @ 100 mls/hr IV DIRECT [facility] Last Admin: 05/08/19 08:04 Dose: 100 mls/hr Documented by: Levetiracetam 750 mg/ Dextrose 107.5 mls @ 400 mls/hr IV Q12HR [facility] Last Admin: 05/08/19 11:12 Dose: 400 mls/hr Documented by: Metoclopramide HCl (Reglan) 10 mg IV Q6H PRN PRN Reason: Nausea And Vomiting Last Admin: 05/07/19 18:34 Dose: 10 mg Documented by: Ondansetron HCl (Zofran) 4 mg IV Q8H PRN PRN Reason: Nausea And Vomiting Last Admin: 05/08/19 11:16 Dose: 4 mg Documented by: Oxycodone/Acetaminophen (Percocet 5/325) 1 tab PO Q6H PRN PRN Reason: Pain, Moderate (4-6) Sodium Chloride (Sodium Chloride Flush Syringe 10 Ml) 10 ml IV BID [facility] Last Admin: 05/08/19 11:18 Dose: 10 ml Documented by: Sodium Chloride (Sodium Chloride Flush Syringe 10 Ml) 10 ml IV PRN PRN PRN Reason: LINE FLUSH Zolpidem Tartrate (Ambien) 5 mg PO QHS PRN PRN Reason: Insomnia Review of Systems Cardiovascular: chest pain, no orthopnea, no palpitations, no rapid/irregular heart beat, no edema, no syncope, no lightheadedness, no shortness of breath Physical Examination Vital Signs Temp Pulse Resp BP Pulse Ox 99.1 F 70 18 141/87 100 05/07/19 08:20 05/07/19 08:20 05/07/19 08:20 05/07/19 08:20 05/07/19 08:20 General appearance: no acute distress HEENT: Positive: PERRL Neck: Positive: neck supple Cardiac: Positive: Reg Rate and Rhythm Lungs: Positive: clear to auscultation Neuro: Positive: Grossly Intact Abdomen: Positive: Soft Female genitourinary: deferred Skin: Positive: Clear Extremities: Absent: edema Results 05/08/19 04:53 05/08/19 04:53 Cardiac Enzymes 05/08/19 Range/Units 04:53 AST 20 (5-40) units/L CBC 05/08/19 Range/Units 04:53 WBC 5.5 (4.5-11.0) K/mm3 RBC 3.85 (3.65-5.03) M/mm3 Hgb 11.3 (10.1-14.3) gm/dl Hct 34.5 (30.3-42.9) % Plt Count 167 (140-440) K/mm3 Lymph # 1.5 (1.2-5.4) K/mm3 [place] # 0.4 (0.0-0.8) K/mm3 Eos # 0.1 (0.0-0.4) K/mm3 Baso # 0.0 (0.0-0.1) K/mm3 Comprehensive Metabolic Panel 05/08/19 Range/Units 04:53 Sodium 139 (137-145) mmol/L Potassium 3.8 (3.6-5.0) mmol/L Chloride 105.9 (98-107) mmol/L Carbon Dioxide 23 (22-30) mmol/L BUN 6 L (7-17) mg/dL Creatinine 0.5 L (0.7-1.2) mg/dL Glucose 105 H (65-100) mg/dL Calcium 8.5 (8.4-10.2) mg/dL AST 20 (5-40) units/L ALT 13 (7-56) units/L Alkaline Phosphatase 76 (35-129) units/L Total Protein 6.8 (6.3-8.2) g/dL Albumin 3.9 (3.9-5) g/dL EKG interpretations - Telemetry EKG Rhythm: Sinus Rhythm Assessment and Plan - Patient Problems (1) Chest pain Current Visit: Yes Status: Acute Plan to address problem: Chest pain is atypical, appears likely musculoskeletal. The patient feels better and once to go home, stable from the cardiac standpoint for discharge. She will follow-up in our office next week, and if indicated, a regular exercise treadmill will be performed at that time. Thank you for this consultation.
[2019-05-08 17:52] VITALS: BP 146/94
[2019-05-08] MEDS ORDERED: KEPPRA PO SCH (22:00)
== END 2019-05-08 22:09 | disposition left against medical advice (07) | DRG 101 ==
LOC: ED 08:13 → OBSVTOIN 11:41 → 3A 11:41
PROVIDERS: ADMIT Internal Medicine; ATTEND Internal Medicine
DX: G40.909 Epilepsy, unspecified, not intractable, without status epilepticus (principal); J45.909 Unspecified asthma, uncomplicated; R07.89 Other chest pain; Z53.29 Procedure and treatment not carried out because of patient's decision for other reasons; Z88.5 Allergy status to narcotic agent; Z88.8 Allergy status to other drugs, medicaments and biological substances; Z88.1 Allergy status to other antibiotic agents; Z79.51 Long term (current) use of inhaled steroids; Z79.899 Other long term (current) drug therapy; Z87.891 Personal history of nicotine dependence
CPT/HCPCS: 36415; 70450; 70551; 71045; 80048; 80053; 80307; 81001; 83036; 83735; 84484; 84703; 85025; 85379; 93005; 93010; 96365; 96372; 96375; G0378; J1170; J1953; J2060; J2405; J2765; J7030; J7042

== ENCOUNTER 2019-09-04 17:36 | Emergency (ER) | payer SELFPAY ==
[2019-09-04 19:21] VITALS: BP 125/80
--- NOTE | 2019-09-04 19:23 | Event Note ---
ED Screening Note ED Screening Note: sore throat that began 4 days ago states discomfort with swallowing nasal congestion no n/v/d no fever PMHx epilepsy not requiring meds states that her children are all sick at home allergy: rocephin, terbutaline, and morphine LNMP: 08/14/2019
--- NOTE | 2019-09-04 19:38 | Emergency Department Report ---
ED ENT HPI - General Chief complaint: Sore Throat Stated complaint: COUGHING BLOOD/FEVER/SORE THROAT Time Seen by Provider: 09/04/19 19:18 Source: patient Mode of arrival: Ambulatory Limitations: No Limitations - History of Present Illness Initial comments: pt is a 29 yo female who presents to the ED with c/o sore throat that began 4 days ago states discomfort with swallowing (+) nasal congestion no n/v/d no fever PMHx epilepsy not requiring meds states that her children are all sick at home allergy: rocephin, terbutaline, and morphine LNMP: 08/14/2019 no difficulty tolerating secretions - Related Data Home Medications Medication Instructions Recorded Confirmed Last Taken Albuterol Sulfate [Ventolin HFA] 1 - 2 puff IH Q6H PRN 01/16/18 04/26/18 Unknown Ferrous Sulfate [Iron 325 MG] 325 mg PO DAILY 01/16/18 04/26/18 Unknown lamoTRIgine [LaMICtal] 25 mg PO HS 04/26/18 04/26/18 04/25/18 20:00 Previous Rx's Medication Instructions Recorded Last Taken Type Betamet Acet/Betamet Na pH 12 mg IM Q24HR vial 03/30/18 Unknown Rx [Celestone Soluspan] Vit-Fe Fumar-FA [ 1 each PO QDAY tablet 03/30/18 Unknown Rx Vitamin] Amoxicillin [Trimox CAP] 500 mg PO BID #20 capsule 01/25/19 Unknown Rx Amoxicillin [Trimox] 500 mg PO BID 10 Days #40 capsule 09/04/19 Unknown Rx Allergies Allergy/AdvReac Type Severity Reaction Status Date / Time ceftriaxone [From Rocephin] Allergy Swelling Verified 01/16/18 15:24 morphine Allergy Shortness Verified 01/16/18 15:34 of Breath turbutaline Allergy Shortness Uncoded 10/11/17 09:53 of Breath ED Dental HPI - General Chief complaint: Sore Throat Stated complaint: COUGHING BLOOD/FEVER/SORE THROAT Time Seen by Provider: 09/04/19 19:18 Source: patient Mode of arrival: Ambulatory Limitations: No Limitations - Related Data Home Medications Medication Instructions Recorded Confirmed Last Taken Albuterol Sulfate [Ventolin HFA] 1 - 2 puff IH Q6H PRN 01/16/18 04/26/18 Unknown Ferrous Sulfate [Iron 325 MG] 325 mg PO DAILY 01/16/18 04/26/18 Unknown lamoTRIgine [LaMICtal] 25 mg PO HS 04/26/18 04/26/18 04/25/18 20:00 Previous Rx's Medication Instructions Recorded Last Taken Type Betamet Acet/Betamet Na pH 12 mg IM Q24HR vial 03/30/18 Unknown Rx [Celestone Soluspan] Vit-Fe Fumar-FA [ 1 each PO QDAY tablet 03/30/18 Unknown Rx Vitamin] Amoxicillin [Trimox CAP] 500 mg PO BID #20 capsule 01/25/19 Unknown Rx Amoxicillin [Trimox] 500 mg PO BID 10 Days #40 capsule 09/04/19 Unknown Rx Allergies Allergy/AdvReac Type Severity Reaction Status Date / Time ceftriaxone [From Rocephin] Allergy Swelling Verified 01/16/18 15:24 morphine Allergy Shortness Verified 01/16/18 15:34 of Breath turbutaline Allergy Shortness Uncoded 10/11/17 09:53 of Breath ED Review of Systems ROS: Stated complaint: COUGHING BLOOD/FEVER/SORE THROAT Other details as noted in HPI Comment: All other systems reviewed and negative ED Past Medical Hx - Past Medical History Previous Medical History?: Yes Hx Hypertension: No Hx Congestive Heart Failure: No Hx Diabetes: No Hx Deep Vein Thrombosis: No Hx Renal Disease: No Hx Sickle Cell Disease: No Hx Seizures: Yes Hx Asthma: Yes Hx COPD: No Hx HIV: No - Surgical History Past Surgical History?: Yes Hx Breast Surgery: Yes (reduction) Additional Surgical History: - Social History Smoking Status: Never Smoker Substance Use Type: None - Medications Home Medications: Home Medications Medication Instructions Recorded Confirmed Last Taken Type Albuterol Sulfate [Ventolin HFA] 1 - 2 puff IH Q6H PRN 01/16/18 04/26/18 Unknown History Ferrous Sulfate [Iron 325 MG] 325 mg PO DAILY 01/16/18 04/26/18 Unknown History Betamet Acet/Betamet Na pH 12 mg IM Q24HR vial 03/30/18 04/26/18 Unknown Rx [Celestone Soluspan] Vit-Fe Fumar-FA [ 1 each PO QDAY tablet 03/30/18 04/26/18 Unknown Rx Vitamin] lamoTRIgine [LaMICtal] 25 mg PO HS 1004/26/18 04/25/18 20:00 History Amoxicillin [Trimox CAP] 500 mg PO BID #20 capsule 01/25/19 Unknown Rx Amoxicillin [Trimox] 500 mg PO BID 10 Days #40 capsule 09/04/19 Unknown Rx ED Physical Exam - General Limitations: No Limitations General appearance: alert, in no apparent distress - Head Head exam: Present: atraumatic, normocephalic - Eye Eye exam: Present: normal appearance - ENT ENT exam: Present: mucous membranes moist, TM's normal bilaterally, normal external ear exam, other (erythema of the posterior oropharynx with exudates present, no tonsillar hypertrophy, uvula is midline, no uvular edema, no deviation of the uvula) - Respiratory Respiratory exam: Present: normal lung sounds bilaterally. Absent: respiratory distress, wheezes, rales, rhonchi, stridor, chest wall tenderness, accessory muscle use, decreased breath sounds, prolonged expiratory - Cardiovascular Cardiovascular Exam: Present: regular rate, normal rhythm, normal heart sounds. Absent: systolic murmur, diastolic murmur, rubs, gallop - Neurological Exam Neurological exam: Present: alert, oriented X3 - Psychiatric Psychiatric exam: Present: normal affect, normal mood - Skin Skin exam: Present: warm, dry, intact ED Course Vital Signs 09/04/19 19:18 Temperature 98.8 F Pulse Rate 102 H Respiratory 20 Rate Blood Pressure 125/80 O2 Sat by Pulse 98 Oximetry ED Medical Decision Making - Medical Decision Making pt is a 29 yo female who presents to the ED with c/o sore throat that began 4 days ago states discomfort with swallowing (+) nasal congestion no n/v/d no fever PMHx epilepsy not requiring meds states that her children are all sick at home allergy: rocephin, terbutaline, and morphine LNMP: 08/14/2019 no difficulty tolerating secretions vss. on exam: erythema of the posterior oropharynx with exudates present, no tonsillar hypertrophy, uvula is midline, no uvular edema, no deviation of the uvula. Examination consistent with strep throat. Given that patient has had sick contact with her children who are in daycare, will treat patient empirically with amoxicillin. advised pt to please take medication as prescribed. may alternate tylenol or ibuprofen as needed for discomfort. increase your fluid intake. may use warm salt water gargles or over the counter throat spray. can use mucinex and flonase over the counter for cough/nasal congestion. follow up with a primary care doctor in the next 2-3 days. return to the emergency room for any new or worsening symptoms Critical care attestation.: If time is entered above; I have spent that time in minutes in the direct care of this critically ill patient, excluding procedure time. ED Disposition Clinical Impression: Strep throat Disposition: DC-01 TO HOME OR SELFCARE Is pt being admited?: No Does the pt Need Aspirin: No Condition: Stable Instructions: Strep Throat (ED) Additional Instructions: please take medication as prescribed. may alternate tylenol or ibuprofen as needed for discomfort. increase your fluid intake. may use warm salt water gargles or over the counter throat spray. can use mucinex and flonase over the counter for cough/nasal congestion. follow up with a primary care doctor in the next 2-3 days. return to the emergency room for any new or worsening symptoms Prescriptions: Amoxicillin [Trimox] 500 mg PO BID 10 Days #40 capsule Referrals: SWETHA BAILON MD [Staff Physician] - 2-3 Days [facility] [Outside] - 2-3 Days [facility] [Outside] - 2-3 Days Time of Disposition: 19:36 Print Language: LATVIAN
== END 2019-09-04 20:11 | disposition home or self-care (01) ==
LOC: ED 17:36
DX: J02.0 Streptococcal pharyngitis (principal); J45.909 Unspecified asthma, uncomplicated; Z79.899 Other long term (current) drug therapy; Z88.8 Allergy status to other drugs, medicaments and biological substances
CPT/HCPCS: 99282

== ENCOUNTER 2020-02-01 09:00 | Emergency (ER) | payer SELFPAY ==
[2020-02-01 09:19] VITALS: BP 116/74
== END 2020-02-01 10:04 | disposition left against medical advice (07) ==
LOC: ED 09:00
DX: Z20.828 Contact with and (suspected) exposure to other viral communicable diseases (principal); Z53.21 Procedure and treatment not carried out due to patient leaving prior to being seen by health care provider

== ENCOUNTER 2020-05-26 10:26 | Emergency (ER) | payer SELFPAY | END 2020-05-26 12:14 | disposition left against medical advice (07) | LOC: ED 10:26 | DX: R56.9 Unspecified convulsions (principal); Z53.21 Procedure and treatment not carried out due to patient leaving prior to being seen by health care provider ==

== ENCOUNTER 2020-06-04 08:51 | Emergency (ER) | payer SELFPAY ==
[2020-06-04 09:01] VITALS: BP 114/64
[2020-06-04 09:57] LABS: Bilirubin,Urine NEG (Negative); Blood,Urine NEG (Negative); Color,Urine Yellow (Yellow); Mucus,Urine 3+ /HPF
[2020-06-04] MEDS ORDERED: oxyCODONE /ACETAMINOPHEN 5-325MG TAB PO ONE (10:02)
[2020-06-04 10:09] LABS: HCG Qualitative,Urine Negative (Negative); WBC,Urine > 182.0 /HPF (0.0-6.0)
--- NOTE | 2020-06-04 10:35 | Emergency Department Report ---
ED General Adult HPI - General Chief complaint: Dental/Oral Stated complaint: FACE PAIN Time Seen by Provider: 06/04/20 09:58 Source: patient Mode of arrival: Ambulatory Limitations: No Limitations - History of Present Illness Initial comments: 30-year-old -Maldivian female patient presents with complaints of right upper dental pain x4 months, worsening x1 week. Patient also complains of urinary frequency and dysuria x4 days. She denies any facial swelling, dysphagia, or difficulty opening/closing her jaw. She also denies any fever/chills/sweats. Patient rates her current pain is 8/10 in severity and states Tylenol is not helping. She reports she does have an appointment with a dental specialist next week. No abdominal pain, nausea/vomiting/diarrhea, vaginal discharge, dyspareunia or history of abdominal surgeries per patient. Severity scale (0 -10): 9 - Related Data Home Medications Medication Instructions Recorded Confirmed Last Taken Albuterol Sulfate [Ventolin HFA] 1 - 2 puff IH Q6H PRN 01/16/18 04/26/18 Unknown Ferrous Sulfate [Iron 325 MG] 325 mg PO DAILY 01/16/18 04/26/18 Unknown lamoTRIgine [LaMICtal] 25 mg PO HS 04/26/18 04/26/18 04/25/18 20:00 Previous Rx's Medication Instructions Recorded Last Taken Type Betamet Acet/Betamet Na pH 12 mg IM Q24HR vial 03/30/18 Unknown Rx [Celestone Soluspan] Vit-Fe Fumar-FA [ 1 each PO QDAY tablet 03/30/18 Unknown Rx Vitamin] Amoxicillin [Trimox CAP] 500 mg PO BID #20 capsule 01/25/19 Unknown Rx Amoxicillin [Trimox] 500 mg PO BID 10 Days #40 capsule 09/04/19 Unknown Rx Albuterol Mdi (or & Nicu Only) 2 puff IH QID PRN #8.5 gram 01/08/20 Unknown Rx [ProAir HFA Inhaler] Ibuprofen [Motrin 800 MG tab] 800 mg PO Q8HR PRN #20 tablet 01/08/20 Unknown Rx Phenytoin [Dilantin] 300 mg PO QHS #90 capsule 01/08/20 Unknown Rx levETIRAcetam [Keppra TAB] 500 mg PO BID #60 tablet 06/27/20 Unknown Rx metroNIDAZOLE [Flagyl] 500 mg PO Q12HR #14 tab 01/08/20 Unknown Rx Albuterol Sulfate [Proair 90 mcg IH Q4HR PRN #2 aer.pow.ba 02/02/20 Unknown Rx Respiclick] Chlorhexidine Mouthwash [Peridex] 15 ml MM BID #1 bottle 02/02/20 Unknown Rx Magnesium Oxide 400 mg PO QDAY #15 tablet 02/02/20 Unknown Rx Metoclopramide [Reglan] 10 mg PO Q6HR PRN #15 tab 02/02/20 Unknown Rx levETIRAcetam [Keppra TAB] 1,500 mg PO BID #120 tablet 02/02/20 Unknown Rx Acetaminophen/Codeine [Tylenol 1 tab PO Q8H PRN #8 tab 06/04/20 Unknown Rx /Codeine # 3 tab] Clindamycin [Clindamycin CAP] 300 mg PO Q6H 10 Days #40 capsule 06/04/20 Unknown Rx Fluconazole (Nf) [Diflucan TAB] 150 mg PO ONCE #1 tablet 06/04/20 Unknown Rx Allergies Allergy/AdvReac Type Severity Reaction Status Date / Time ceftriaxone [From Rocephin] Allergy Swelling Verified 01/16/18 15:24 morphine Allergy Shortness Verified 01/16/18 15:34 of Breath turbutaline Allergy Shortness Uncoded 10/11/17 09:53 of Breath ED Review of Systems ROS: Stated complaint: FACE PAIN Other details as noted in HPI Constitutional: denies: chills, fever ENT: dental pain Respiratory: denies: cough, shortness of breath Cardiovascular: denies: chest pain Gastrointestinal: denies: abdominal pain, nausea, vomiting Genitourinary: urgency, dysuria, frequency, hematuria. denies: discharge, dyspareunia ED Past Medical Hx - Past Medical History Previous Medical History?: Yes Hx Congestive Heart Failure: No Hx Seizures: Yes Hx Asthma: Yes Hx COPD: No - Surgical History Past Surgical History?: Yes Hx Breast Surgery: Yes (reduction) Additional Surgical History: . ruptured cyst - Social History Smoking Status: Never Smoker Substance Use Type: Alcohol - Medications Home Medications: Home Medications Medication Instructions Recorded Confirmed Last Taken Type Albuterol Sulfate [Ventolin HFA] 1 - 2 puff IH Q6H PRN 01/16/18 04/26/18 Unknown History Ferrous Sulfate [Iron 325 MG] 325 mg PO DAILY 01/16/18 04/26/18 Unknown History Betamet Acet/Betamet Na pH 12 mg IM Q24HR vial 03/30/18 04/26/18 Unknown Rx [Celestone Soluspan] Vit-Fe Fumar-FA [ 1 each PO QDAY tablet 03/30/18 04/26/18 Unknown Rx Vitamin] lamoTRIgine [LaMICtal] 25 mg PO HS 04/26/18 04/26/18 04/25/18 20:00 History Amoxicillin [Trimox CAP] 500 mg PO BID #20 capsule 01/25/19 Unknown Rx Amoxicillin [Trimox] 500 mg PO BID 10 Days #40 capsule 09/04/19 Unknown Rx Albuterol Mdi (or & Nicu Only) 2 puff IH QID PRN #8.5 gram 01/08/20 Unknown Rx [ProAir HFA Inhaler] Ibuprofen [Motrin 800 MG tab] 800 mg PO Q8HR PRN #20 tablet 01/08/20 Unknown Rx Phenytoin [Dilantin] 300 mg PO QHS #90 capsule 01/08/20 Unknown Rx levETIRAcetam [Keppra TAB] 500 mg PO BID #60 tablet 01/08/20 Unknown Rx metroNIDAZOLE [Flagyl] 500 mg PO Q12HR #14 tab 01/08/20 Unknown Rx Albuterol Sulfate [Proair 90 mcg IH Q4HR PRN #2 aer.pow.ba 02/02/20 Unknown Rx Respiclick] Chlorhexidine Mouthwash [Peridex] 15 ml MM BID #1 bottle 02/02/20 Unknown Rx Magnesium Oxide 400 mg PO QDAY #15 tablet 02/02/20 Unknown Rx Metoclopramide [Reglan] 10 mg PO Q6HR PRN #15 tab 02/02/20 Unknown Rx levETIRAcetam [Keppra TAB] 1,500 mg PO BID #120 tablet 02/02/20 Unknown Rx Acetaminophen/Codeine [Tylenol 1 tab PO Q8H PRN #8 tab 06/04/20 Unknown Rx /Codeine # 3 tab] Clindamycin [Clindamycin CAP] 300 mg PO Q6H 10 Days #40 capsule 06/04/20 Unkn own Rx Fluconazole (Nf) [Diflucan TAB] 150 mg PO ONCE #1 tablet 06/04/20 Unknown Rx ED Physical Exam - General Limitations: No Limitations General appearance: alert, in no apparent distress - Head Head exam: Present: atraumatic, normocephalic - Eye Eye exam: Present: normal appearance. Absent: scleral icterus - Expanded ENT Exam Expanded Mouth exam: Present: tongue normal. Absent: drooling, trismus, muffled voice Teeth exam: Present: dental caries 1 - Dental Tenderness (With dental decay and mild surrounding erythema about the gums; no obvious abscess noted; no overlying facial swelling or erythema no) Throat exam: Negative: tonsillar erythema, tonsillomegaly - Neck Neck exam: Present: normal inspection. Absent: lymphadenopathy - Respiratory Respiratory exam: Present: normal lung sounds bilaterally. Absent: respiratory distress - Cardiovascular Cardiovascular Exam: Present: regular rate - Neurological Exam Neurological exam: Present: alert, oriented X3, normal gait - Psychiatric Psychiatric exam: Present: normal affect, normal mood - Skin Skin exam: Present: warm, dry, intact, normal color. Absent: rash, cyanosis, erythema ED Course Vital Signs 06/04/20 08:57 Temperature 98.1 F Pulse Rate 77 Respiratory 20 Rate Blood Pressure 114/64 O2 Sat by Pulse 100 Oximetry ED Medical Decision Making - Medical Decision Making 30-year-old -Maldivian female patient presents with complaints of right upper dental pain x4 months, worsening x1 week. Patient also complains of urinary frequency and dysuria x4 days. She denies any facial swelling, dysphagia, or difficulty opening/closing her jaw. She also denies any fever/chills/sweats. Patient rates her current pain is 8/10 in severity and states Tylenol is not helping. She reports she does have an appointment with a dental specialist next week. No abdominal pain, nausea/vomiting/diarrhea, vaginal discharge, dyspareunia or history of abdominal surgeries per patient. UTI noted on UA. No signs of facial cellulitis or dental abscess noted on exam. Dental tenderness and erythema is noted to the gumline. Prescription for clindamycin given. Urine culture sent. Her vitals are normal, she is well- appearing, she is stable for discharge home. Patient to follow-up with her dental specialist and primary care provider. Strict return precautions were discussed in detail with patient verbalizes understanding peer Critical care attestation.: If time is entered above; I have spent that time in minutes in the direct care of this critically ill patient, excluding procedure time. ED Disposition Clinical Impression: Dental infection UTI (urinary tract infection) Qualifiers: Urinary tract infection type: acute cystitis Hematuria presence: without hematuria Qualified Code(s): N30.00 - Acute cystitis without hematuria Disposition: TO HOME OR SELFCARE Is pt being admited?: No Condition: Stable Instructions: Urinary Tract Infection, Adult, Dental Abscess Additional Instructions: Please follow-up with your dental specialist within 24 to 48 hours Prescriptions: Clindamycin [Clindamycin CAP] 300 mg PO Q6H 10 Days #40 capsule Fluconazole (Nf) [Diflucan TAB] 150 mg PO ONCE #1 tablet Acetaminophen/Codeine [Tylenol /Codeine # 3 tab] 1 tab PO Q8H PRN #8 tab PRN Reason: Pain , Severe (7-10) Referrals: PRIMARY CARE, [Primary Care Provider] - 3-5 Days
[2020-06-04] MEDS ORDERED: ONDANSETRON 4 MG ODT TAB PO ONE (10:39)
== END 2020-06-04 11:16 | disposition home or self-care (01) ==
LOC: ED 08:51
DX: N39.0 Urinary tract infection, site not specified (principal); K02.9 Dental caries, unspecified; Z88.6 Allergy status to analgesic agent; Z88.1 Allergy status to other antibiotic agents
CPT/HCPCS: 81001; 81025; 99283; Q0162

== ENCOUNTER 2020-08-10 09:29 | Emergency (ER) | payer SELFPAY ==
--- NOTE | 2020-08-10 09:40 | Event Note ---
ED Screening Note ED Screening Note: obgyn 2 ago has had recurrent uti-- and bv not concerned for sti pmh epilepsy-sz last 6 m ago asthma rx keppra --- 500 daily dilantin-- md took her off psh tubal co b flank pain low grade fever at home per pt dysuria vag dc This initial assessment/diagnostic orders/clinical plan/treatment(s) is/are subject to change based on patients health status, clinical progression and re- assessment by fellow clinical providers in the ED. Further treatment and workup at subsequent clinical providers discretion. Patient/guardian urged not to elope from the ED as their condition may be serious if not clinically assessed and managed. Initial orders include: labs ua
[2020-08-10 10:49] LABS: HCG Qualitative,Urine Negative (Negative)
[2020-08-10 10:54] LABS: Bilirubin,Urine NEG (Negative); Blood,Urine NEG (Negative); Color,Urine Yellow (Yellow); Mucus,Urine 1+ /HPF; Protein,Urine <15 mg/dL mg/dL (Negative); Urobilinogen,Urine < 2.0 mg/dL (<2.0)
[2020-08-10 11:05] LABS: Basophils % (Auto) 0.4 % (0.0-1.8); Eosinophils # (Auto) 0.1 K/mm3 (0.0-0.4); Eosinophils % (Auto) 1.7 % (0.0-4.3); Hemoglobin 9.8 gm/dl (10.1-14.3); Lymphocytes # (Auto) 1.4 K/mm3 (1.2-5.4); Mean Corpuscular HGB Conc 32 % (30-34); Mean Corpuscular Volume 83 fl (79-97); Monocytes # (Auto) 0.4 K/mm3 (0.0-0.8); Monocytes % (Auto) 7.1 % (0.0-7.3); Platelet Count 198 K/mm3 (140-440); Red Blood Count 3.72 M/mm3 (3.65-5.03); Red Cell Distribution Width 15.9 % (13.2-15.2)
[2020-08-10 11:25] LABS: Alanine Aminotransferase 8 units/L (7-56); Albumin 4.3 g/dL (3.9-5); Blood Urea Nitrogen 9 mg/dL (7-17); Calcium 8.8 mg/dL (8.4-10.2); Hemolysis Index 6
[2020-08-10 11:51] LABS: BUN/Creatinine Ratio 15
[2020-08-10] MEDS ORDERED: KETOROLAC 30 MG/1 ML INJ IV ONE (11:58)
--- NOTE | 2020-08-10 12:40 | Emergency Department Report ---
ED Back Pain/Injury HPI - General Chief Complaint: Abdominal Pain Stated Complaint: BACK PAIN Time Seen by Provider: 08/10/20 09:35 Source: patient Limitations: No Limitations - History of Present Illness Initial Comments: 30-year-old female presents to ED with bilateral flank pain. Patient states this is been ongoing for approximately 2 months. States she has been treated fo r UTI and bacterial vaginosis, however, she is still experiencing the pain. Patient states right side is worse than left. Patient reports pleuritic pain in the right flank area. She reports some mild shortness of breath. She reports fever at home. She denies any cough, denies any leg pain or swelling. MD Complaint: back pain -: month(s) (2) Radiation: none Severity: moderate Quality: sharp Consistency: intermittent Improves With: none Worsens With: deep breaths/cough Context: unknown Associated Symptoms: fever/chills, shortness of breath. denies: chest pain, cough, nausea/vomiting - Related Data Home Medications Medication Instructions Recorded Confirmed Last Taken Albuterol Sulfate [Ventolin HFA] 1 - 2 puff IH Q6H PRN 01/16/18 04/26/18 Unknown Ferrous Sulfate [Iron 325 MG] 325 mg PO DAILY 01/16/18 04/26/18 Unknown lamoTRIgine [LaMICtal] 25 mg PO HS 04/26/18 04/26/18 04/25/18 20:00 Previous Rx's Medication Instructions Recorded Last Taken Type Betamet Acet/Betamet Na pH 12 mg IM Q24HR vial 03/30/18 Unknown Rx [Celestone Soluspan] Vit-Fe Fumar-FA [ 1 each PO QDAY tablet 03/30/18 Unknown Rx Vitamin] Amoxicillin [Trimox CAP] 500 mg PO BID #20 capsule 01/25/19 Unknown Rx Amoxicillin [Trimox] 500 mg PO BID 10 Days #40 capsule 09/04/19 Unknown Rx Albuterol Mdi (or & Nicu Only) 2 puff IH QID PRN #8.5 gram 01/08/20 Unknown Rx [ProAir HFA Inhaler] Ibuprofen [Motrin 800 MG tab] 800 mg PO Q8HR PRN #20 tablet 01/08/20 Unknown Rx Phenytoin [Dilantin] 300 mg PO QHS #90 capsule 01/08/20 Unknown Rx levETIRAcetam [Keppra TAB] 500 mg PO BID #60 tablet 01/08/20 Unknown Rx metroNIDAZOLE [Flagyl] 500 mg PO Q12HR #14 tab 01/08/20 Unknown Rx Albuterol Sulfate [Proair 90 mcg IH Q4HR PRN #2 aer.pow.ba 02/02/20 Unknown Rx Respiclick] Chlorhexidine Mouthwash [Peridex] 15 ml MM BID #1 bottle 02/02/20 Unknown Rx Magnesium Oxide 400 mg PO QDAY #15 tablet 02/02/20 Unknown Rx Metoclopramide [Reglan] 10 mg PO Q6HR PRN #15 tab 02/02/20 Unknown Rx levETIRAcetam [Keppra TAB] 1,500 mg PO BID #120 tablet 02/02/20 Unknown Rx Acetaminophen/Codeine [Tylenol 1 tab PO Q8H PRN #8 tab 06/04/20 Unknown Rx /Codeine # 3 tab] Clindamycin [Clindamycin CAP] 300 mg PO Q6H 10 Days #40 capsule 06/04/20 Unknown Rx Fluconazole (Nf) [Diflucan TAB] 150 mg PO ONCE #1 tablet 06/04/20 Unknown Rx Naproxen [Naprosyn] 500 mg PO BID #20 tablet 08/10/20 Unknown Rx methOCARBAMOL [Robaxin TAB] 500 mg PO Q8HR PRN #20 tablet 08/10/20 Unknown Rx Allergies Allergy/AdvReac Type Severity Reaction Status Date / Time ceftriaxone [From Rocephin] Allergy Swelling Verified 08/10/20 09:31 morphine Allergy Shortness Verified 08/10/20 09:31 of Breath turbutaline Allergy Shortness Uncoded 10/11/17 09:53 of Breath ED Review of Systems ROS: Stated complaint: BACK PAIN Other details as noted in HPI Comment: All other systems reviewed and negative Constitutional: fever Respiratory: shortness of breath. denies: cough Cardiovascular: denies: chest pain Gastrointestinal: denies: abdominal pain Musculoskeletal: back pain, other (Denies leg pain and swelling) ED Past Medical Hx - Past Medical History Hx Congestive Heart Failure: No Hx Seizures: Yes Hx Asthma: Yes Hx COPD: No - Surgical History Hx Breast Surgery: Yes (reduction) Additional Surgical History: . ruptured cyst - Social History Smoking Status: Never Smoker Substance Use Type: None - Medications Home Medications: Home Medications Medication Instructions Recorded Confirmed Last Taken Type Albuterol Sulfate [Ventolin HFA] 1 - 2 puff IH Q6H PRN 01/16/18 04/26/18 Unknown History Ferrous Sulfate [Iron 325 MG] 325 mg PO DAILY 01/16/18 04/26/18 Unknown History Betamet Acet/Betamet Na pH 12 mg IM Q24HR vial 03/30/18 04/26/18 Unknown Rx [Celestone Soluspan] Vit-Fe Fumar-FA [ 1 each PO QDAY tablet 03/30/18 04/26/18 Unknown Rx Vitamin] lamoTRIgine [LaMICtal] 25 mg PO HS 04/26/18 04/26/18 04/25/18 20:00 History Amoxicillin [Trimox CAP] 500 mg PO BID #20 capsule 01/25/19 Unknown Rx Amoxicillin [Trimox] 500 mg PO BID 10 Days #40 capsule 09/04/19 Unknown Rx Albuterol Mdi (or & Nicu Only) 2 puff IH QID PRN #8.5 gram 01/08/20 Unknown Rx [ProAir HFA Inhaler] Ibuprofen [Motrin 800 MG tab] 800 mg PO Q8HR PRN #20 tablet 01/08/20 Unknown Rx Phenytoin [Dilantin] 300 mg PO QHS #90 capsule 01/08/20 Unknown Rx levETIRAcetam [Keppra TAB] 500 mg PO BID #60 tablet 01/08/20 Unknown Rx metroNIDAZOLE [Flagyl] 500 mg PO Q12HR #14 tab 01/08/20 Unknown Rx Albuterol Sulfate [Proair 90 mcg IH Q4HR PRN #2 aer.pow.ba 02/02/20 Unknown Rx Respiclick] Chlorhexidine Mouthwash [Peridex] 15 ml MM BID #1 bottle 02/02/20 Unknown Rx Magnesium Oxide 400 mg PO QDAY #15 tablet 02/02/20 Unknown Rx Metoclopramide [Reglan] 10 mg PO Q6HR PRN #15 tab 02/02/20 Unknown Rx levETIRAcetam [Keppra TAB] 1,500 mg PO BID #120 tablet 02/02/20 Unknown Rx Acetaminophen/Codeine [Tylenol 1 tab PO Q8H PRN #8 tab 06/04/20 Unknown Rx /Codeine # 3 tab] Clindamycin [Clindamycin CAP] 300 mg PO Q6H 10 Days #40 capsule 06/04/20 Unknown Rx Fluconazole (Nf) [Diflucan TAB] 150 mg PO ONCE #1 tablet 06/04/20 Unknown Rx Naproxen [Naprosyn] 500 mg PO BID #20 tablet 08/10/20 Unknown Rx methOCARBAMOL [Robaxin TAB] 500 mg PO Q8HR PRN #20 tablet 08/10/20 Unknown Rx ED Physical Exam - General Limitations: No Limitations General appearance: alert, in no apparent distress - Head Head exam: Present: atraumatic, normocephalic - Eye Eye exam: Present: normal appearance, EOMI - ENT ENT exam: Present: mucous membranes moist - Neck Neck exam: Present: normal inspection - Respiratory Respiratory exam: Present: normal lung sounds bilaterally. Absent: respiratory distress - Cardiovascular Cardiovascular Exam: Present: regular rate, normal rhythm - GI/Abdominal GI/Abdominal exam: Present: soft. Absent: distended, tenderness - Extremities Exam Extremities exam: Present: normal inspection. Absent: pedal edema, calf tenderness - Back Exam Back exam: Present: CVA tenderness (R) - Neurological Exam Neurological exam: Present: alert, oriented X3 - Psychiatric Psychiatric exam: Present: normal affect, normal mood - Skin Skin exam: Present: warm, dry, intact, normal color ED Course Vital Signs 08/10/20 08/10/20 09:32 14:18 Temperature 98 F 98.0 F Pulse Rate 71 71 Respiratory 18 18 Rate Blood Pressure 136/50 Blood Pressure 134/54 [Left] O2 Sat by Pulse 100 100 Oximetry ED Medical Decision Making - Lab Data Result diagrams: 08/10/20 10:03 08/10/20 10:03 - Radiology Data Radiology results: report reviewed, image reviewed - Medical Decision Making 30-year-old female with ongoing flank pain x2 months. Work-up unremarkable including D-dimer that was sent secondary to patient reported pleuritic component of her right sided flank pain. D-dimer is normal. UA is normal. Patient will be discharged at this time. Outpatient follow-up advised, return precautions given. - Differential Diagnosis PE, kidney stone, pyelonephritis Critical care attestation.: If time is entered above; I have spent that time in minutes in the direct care of this critically ill patient, excluding procedure time. ED Disposition Clinical Impression: Back pain Disposition: DC- TO HOME OR SELFCARE Is pt being admited?: No Condition: Stable Instructions: Pain Without a Known Cause, Abdominal Pain (ED) Prescriptions: Naproxen [Naprosyn] 500 mg PO BID #20 tablet methOCARBAMOL [Robaxin TAB] 500 mg PO Q8HR PRN #20 tablet PRN Reason: Muscle Spasm Referrals: PRIMARY CARE, [Primary Care Provider] - 3-5 Days Time of Disposition: 14:01
--- NOTE | 2020-08-10 12:48 | XRay Report ---
CHEST 2 VIEWS INDICATION / CLINICAL INFORMATION: sob, right posterior chest pain. COMPARISON: Chest 2 views from 02/01/2020. FINDINGS: SUPPORT DEVICES: None. HEART / MEDIASTINUM: No significant abnormality. LUNGS / PLEURA: Clear lungs. No significant pleural effusion. No pneumothorax. ADDITIONAL FINDINGS: No significant additional findings. IMPRESSION: 1. No acute abnormality of the chest. Signer Name: Babatunde Stevenson MD Signed: 08/10/2020 12:40 PM Workstation Name: [id number]
[2020-08-10 13:44] LABS: INR 1.04 (0.87-1.13)
[2020-08-10 13:45] LABS: Partial Thromboplastin Time 29.4 Sec. (24.2-36.6)
[2020-08-10 14:20] VITALS: BP 134/54
== END 2020-08-10 14:18 | disposition home or self-care (01) ==
LOC: ED 09:29
DX: M54.9 Dorsalgia, unspecified (principal); G40.909 Epilepsy, unspecified, not intractable, without status epilepticus; J45.909 Unspecified asthma, uncomplicated; Z79.899 Other long term (current) drug therapy; Z98.890 Other specified postprocedural states; Z88.6 Allergy status to analgesic agent; Z88.8 Allergy status to other drugs, medicaments and biological substances
CPT/HCPCS: 36415; 71046; 80053; 81001; 81025; 83690; 85025; 85379; 85610; 85730; 96374; 99284; J1885

== ENCOUNTER 2020-10-13 20:10 | Observation (INO) | payer SELFPAY ==
[2020-10-13 22:03] LABS: Bilirubin,Urine NEG (Negative); Blood,Urine SM (Negative); Color,Urine Straw (Yellow); Protein,Urine <15 mg/dL mg/dL (Negative); Urobilinogen,Urine < 2.0 mg/dL (<2.0); WBC,Urine < 1.0 /HPF (0.0-6.0)
[2020-10-13 22:05] LABS: HCG Qualitative,Urine Negative (Negative)
[2020-10-13] MEDS ORDERED: KETOROLAC 30 MG/1 ML INJ IV ONE (22:59)
[2020-10-13] MEDS ORDERED: HYDROmorphone 1 MG/1 ML INJ IV ONE (22:59)
[2020-10-13] MEDS ORDERED: SODIUM CHLORIDE 0.9% 1000 ML 1,000 ML IV ONE (22:59)
--- NOTE | 2020-10-13 23:03 | Emergency Department Report ---
ED Abdominal Pain HPI - General Chief Complaint: Abdominal Pain Stated Complaint: RUPTURED CYSTS PUI?: No Time Seen by Provider: 10/13/20 22:57 Source: patient Mode of arrival: Ambulatory Limitations: No Limitations - History of Present Illness Initial Comments: Patient is a 30-year-old female that presents emergency room with complaints of lower abdomen abdominal pain. Patient states that the pain is worse on the right than on the left. Patient states the pain going on for 2 days. Patient states 1 week ago she was seen at [facility] for similar symptoms and was diagnosed with a ruptured ovarian cyst. Patient states she was given Naprosyn and nausea medications. Patient states her pain did improve with tr eatment but it came back worse 2 days ago. Patient dates her pain right now is a 10 out of 10. Patient dates her pain is better with rest and worse with palpation and movement. Patient states that she had a pelvic exam at the other hospital and was treated for BV, gonorrhea and chlamydia. Patient states she is still taking antibiotics. Patient denies vaginal discharge at this time.. Patient states she still has somewhat of a vaginal odor. Patient denies dysuria. Patient states the pain is nonradiating. Patient is complaining of nausea. Patient states the pain is about is making her nauseous. Patient denies vomiting. Patient denies chest pain. Patient denies fever and chills. Patient denies shortness of breath. Patient denies diarrhea. Patient denies recent travel. Patient denies recent international travel. Patient denies exposure to the novel coronavirus. Patient denies sick contacts. Patient denies fever and chills. Patient denies cough. Patient denies diarrhea. Patient denies coming in contact with anybody with symptoms of the novel coronavirus. Complaint: abdominal pain -: Sudden Location: LLQ, RLQ Radiation: none Migration to: no migration Severity: severe Severity scale (0 -10): 10 Quality: stabbing Consistency: constant Improves With: rest Worsens With: movement, other (Palpation) Context: recent antibiotic use Associated Symptoms: nausea. denies: vomiting, diarrhea, fever, chills, constipation, dysuria, hematemesis, hematochezia, melena, hematuria, anorexia, syncope - Related Data Home Medications Medication Instructions Recorded Confirmed Last Taken Albuterol Sulfate [Ventolin HFA] 1 - 2 puff IH Q6H PRN 01/16/18 04/26/18 Unknown Ferrous Sulfate [Iron 325 MG] 325 mg PO DAILY 01/16/18 04/26/18 Unknown lamoTRIgine [LaMICtal] 25 mg PO HS 04/26/18 04/26/18 04/25/18 20:00 Previous Rx's Medication Instructions Recorded Last Taken Type Betamet Acet/Betamet Na pH 12 mg IM Q24HR vial 03/30/18 Unknown Rx [Celestone Soluspan] Vit-Fe Fumar-FA [ 1 each PO QDAY tablet 03/30/18 Unknown Rx Vitamin] Amoxicillin [Trimox CAP] 500 mg PO BID #20 capsule 01/25/19 Unknown Rx Amoxicillin [Trimox] 500 mg PO BID 10 Days #40 capsule 09/04/19 Unknown Rx Albuterol Mdi (or & Nicu Only) 2 puff IH QID PRN #8.5 gram 01/08/20 Unknown Rx [ProAir HFA Inhaler] Ibuprofen [Motrin 800 MG tab] 800 mg PO Q8HR PRN #20 tablet 01/08/20 Unknown Rx Phenytoin [Dilantin] 300 mg PO QHS #90 capsule 01/08/20 Unknown Rx levETIRAcetam [Keppra TAB] 500 mg PO BID #60 tablet 01/08/20 Unknown Rx metroNIDAZOLE [Flagyl] 500 mg PO Q12HR #14 tab 01/08/20 Unknown Rx Albuterol Sulfate [Proair 90 mcg IH Q4HR PRN #2 aer.pow.ba 02/02/20 Unknown Rx Respiclick] Chlorhexidine Mouthwash [Peridex] 15 ml MM BID #1 bottle 02/02/20 Unknown Rx Magnesium Oxide 400 mg PO QDAY #15 tablet 02/02/20 Unknown Rx Metoclopramide [Reglan] 10 mg PO Q6HR PRN #15 tab 02/02/20 Unknown Rx levETIRAcetam [Keppra TAB] 1,500 mg PO BID #120 tablet 02/02/20 Unknown Rx Acetaminophen/Codeine [Tylenol 1 tab PO Q8H PRN #8 tab 06/04/20 Unknown Rx /Codeine # 3 tab] Clindamycin [Clindamycin CAP] 300 mg PO Q6H 10 Days #40 capsule 06/04/20 Unknown Rx Fluconazole (Nf) [Diflucan TAB] 150 mg PO ONCE #1 tablet 06/04/20 Unknown Rx Naproxen [Naprosyn] 500 mg PO BID #20 tablet 08/10/20 Unknown Rx methOCARBAMOL [Robaxin TAB] 500 mg PO Q8HR PRN #20 tablet 08/10/20 Unknown Rx Allergies Allergy/AdvReac Type Severity Reaction Status Date / Time ceftriaxone [From Rocephin] Allergy Itching Verified 10/14/20 03:02 morphine Allergy Shortness Verified 08/10/20 09:31 of Breath turbutaline Allergy Shortness Uncoded 10/11/17 09:53 of Breath ED Review of Systems ROS: Stated complaint: RUPTURED CYSTS Other details as noted in HPI Constitutional: denies: chills, fever Eyes: denies: eye pain, eye discharge, vision change ENT: denies: ear pain, throat pain Respiratory: denies: cough, shortness of breath, wheezing Cardiovascular: denies: chest pain, palpitations Endocrine: no symptoms reported Gastrointestinal: as per HPI, abdominal pain, nausea. denies: vomiting, diarrhea Genitourinary: denies: urgency, dysuria, discharge Musculoskeletal: denies: back pain, joint swelling, arthralgia Skin: denies: rash, lesions Neurological: denies: headache, weakness, paresthesias Psychiatric: denies: anxiety, depression Hematological/Lymphatic: denies: easy bleeding, easy bruising ED Past Medical Hx - Past Medical History Previous Medical History?: Yes Hx Congestive Heart Failure: No Hx Seizures: Yes Hx Asthma: Yes Hx COPD: No Additional medical history: Bilateral Ovarian Cysts - Surgical History Past Surgical History?: Yes Hx Breast Surgery: Yes (reduction) Additional Surgical History: . ruptured cyst - Family History Family history: no significant - Social History Smoking Status: Never Smoker Substance Use Type: None - Medications Home Medications: Home Medications Medication Instructions Recorded Confirmed Last Taken Type Albuterol Sulfate [Ventolin HFA] 1 - 2 puff IH Q6H PRN 01/16/18 04/26/18 Unknown History Ferrous Sulfate [Iron 325 MG] 325 mg PO DAILY 01/16/18 04/26/18 Unknown History Betamet Acet/Betamet Na pH 12 mg IM Q24HR vial 03/30/18 04/26/18 Unknown Rx [Celestone Soluspan] Vit-Fe Fumar-FA [ 1 each PO QDAY tablet 03/30/18 04/26/18 Unknown Rx Vitamin] lamoTRIgine [LaMICtal] 25 mg PO HS 04/26/18 04/26/18 04/25/18 20:00 History Amoxicillin [Trimox CAP] 500 mg PO BID #20 capsule 01/25/19 Unknown Rx Amoxicillin [Trimox] 500 mg PO BID 10 Days #40 capsule 09/04/19 Unknown Rx Albuterol Mdi (or & Nicu Only) 2 puff IH QID PRN #8.5 gram 01/08/20 Unknown Rx [ProAir HFA Inhaler] Ibuprofen [Motrin 800 MG tab] 800 mg PO Q8HR PRN #20 tablet 01/08/20 Unknown Rx Phenytoin [Dilantin] 300 mg PO QHS #90 capsule 01/08/20 Unknown Rx levETIRAcetam [Keppra TAB] 500 mg PO BID #60 tablet 01/08/20 Unknown Rx metroNIDAZOLE [Flagyl] 500 mg PO Q12HR #14 tab 01/08/20 Unknown Rx Albuterol Sulfate [Proair 90 mcg IH Q4HR PRN #2 aer.pow.ba 02/02/20 Unknown Rx Respiclick] Chlorhexidine Mouthwash [Peridex] 15 ml MM BID #1 bottle 02/02/20 Unknown Rx Magnesium Oxide 400 mg PO QDAY #15 tablet 02/02/20 Unknown Rx Metoclopramide [Reglan] 10 mg PO Q6HR PRN #15 tab 02/02/20 Unknown Rx levETIRAcetam [Keppra TAB] 1,500 mg PO BID #120 tablet 02/02/20 Unknown Rx Acetaminophen/Codeine [Tylenol 1 tab PO Q8H PRN #8 tab 06/04/20 Unknown Rx /Codeine # 3 tab] Clindamycin [Clindamycin CAP] 300 mg PO Q6H 10 Days #40 capsule 06/04/20 Unknown Rx Fluconazole (Nf) [Diflucan TAB] 150 mg PO ONCE #1 tablet 06/04/20 Unknown Rx Naproxen [Naprosyn] 500 mg PO BID #20 tablet 08/10/20 Unknown Rx methOCARBAMOL [Robaxin TAB] 500 mg PO Q8HR PRN #20 tablet 08/10/20 Unknown Rx ED Physical Exam - General Limitations: No Limitations General appearance: alert, in no apparent distress - Head Head exam: Present: atraumatic, normocephalic - Eye Eye exam: Present: normal appearance - ENT ENT exam: Present: mucous membranes moist - Neck Neck exam: Present: normal inspection - Respiratory Respiratory exam: Present: normal lung sounds bilaterally. Absent: respiratory distress - Cardiovascular Cardiovascular Exam: Present: regular rate, normal rhythm. Absent: systolic murmur, diastolic murmur, rubs, gallop - GI/Abdominal GI/Abdominal exam: Present: soft, tenderness (Right lower quadrant tenderness to palpation.), normal bowel sounds - External exam: Present: normal external exam Speculum exam: Present: erythema, cervical discharge, other (Abscess noted on the vaginal lateral wall) Bi-manual exam: Present: cervical motion tendernes - Extremities Exam Extremities exam: Present: normal inspection - Back Exam Back exam: Present: normal inspection - Neurological Exam Neurological exam: Present: alert, oriented X3 - Psychiatric Psychiatric exam: Present: normal affect, normal mood - Skin Skin exam: Present: warm, dry, intact, normal color. Absent: rash ED Course Vital Signs 10/13/20 10/14/20 21:27 00:00 Temperature 98.1 F Pulse Rate 64 Respiratory 18 18 Rate Blood Pressure 124/78 O2 Sat by Pulse 100 Oximetry - Reevaluation(s) Reevaluation #1: Patient to be given Dilaudid. 10/13/20 2300 Reevaluation #2: Patient states her pain is a little bit better. Patient states her pain is now a 7 out of 10. 10/14/20 00:20 Reevaluation #3: I discussed results with patient. Patient will have a pelvic exam done. Patient agrees with plan. 10/14/20 02:11 Reevaluation #4: Pelvic exam done with charge nurseEverett in the room. Wet prep and GC chlamydia were collected. I will discuss the case with [facility] 10/14/20 02:45 Reevaluation #5: Patient still complaining of severe abdominal pain. Patient with another milligram of Dilaudid. Patient states her allergy to Rocephin is itching. Patient will be given a dose of Rocephin and Solu-Medrol. Patient also given IV doxy. Patient agrees with plan of care. I discussed all results with patient. I discussed plan of care with patient. Patient agrees with plan of care and admission. Patient to be admitted to the [facility] service. 10/14/20 03:01 - Consultations Consultation #1: I discussed case with Dr. Wall, [facility]. Dr. Wall agrees to admit the patient to mother-baby. 10/14/20 02:55 ED Medical Decision Making - Lab Data Result diagrams: 10/13/20 23:10 10/13/20 23:10 - Radiology Data Radiology results: report reviewed CT ABDOMEN AND PELVIS WITH CONTRAST INDICATION / CLINICAL INFORMATION: Abdominal Pain. TECHNIQUE: Axial CT images were obtained through the abdomen and pelvis after 1 00 cc of Omnipaque [address] scans at this location are performed using CT dose redu ction for [facility] by means of automated exposure control. COMPARISON: None available. FINDINGS: LOWER CHEST: No significant abnormality. LIVER: No significant abnormality. GALLBLADDER: No significant abnormality. BILE DUCTS: No significant abnormality. PANCREAS: No significant abnormality. SPLEEN: No significant abnormality. ADRENALS: No significant abnormality. RIGHT KIDNEY / URETER: No significant abnormality. LEFT KIDNEY / URETER: No significant abnormality. STOMACH / SMALL BOWEL: No significant abnormality. COLON: No significant abnormality. APPENDIX: No significant abnormality. PERITONEUM: No free fluid. No free air. No fluid collection. LYMPH NODES: No significant adenopathy. AORTA / ARTERIES: No significant abnormality. IVC / VEINS: No significant abnormality. URINARY BLADDER: No significant abnormality. REPRODUCTIVE ORGANS: There is a collection of fluid and air along the right aspect of the vagina concerning for abscess involving the wall of the vagina this collection measures approximately 2.5 x 1.6 cm. ADDITIONAL FINDINGS: None. SKELETAL SYSTEM: No significant abnormality. IMPRESSION: 1. There is a fluid collection along the right wall of the vagina which contains a few bubbles of air concerning for an abscess in the wall of the vagina. - Medical Decision Making Patient is a 30-year-old female that presents emergency room with complaints of lower abdominal pain. Patient states she has suprapubic and right lower quadrant. Patient extremely tender on right lower quadrant palpation. Patient had labs done which were essentially unremarkable. Patient had a CT scan of the abdomen and the CT of the abdomen shows a vaginal abscess. Patient then had a pelvic exam and a vaginal abscess was noted as well as cervical motion tenderness cervical discharge. Patient was seen at another hospital previously and given a diagnosis of a ruptured ovarian cyst and was also treated empirically for STDs with Flagyl, doxy and Zithromax. Patient is still taking oral antibiotics as an outpatient. Patient has worsening symptoms. Patient essentially failed outpatient treatment and will require inpatient observation and treatment for her worsening pelvic inflammatory disease. 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 Wall has agreed to a dmission. Critical care time documented due to the multiple reassessments, prolonged time at the bedside, interpretation of diagnostics and labs. - Differential Diagnosis PID, ovarian cyst, appendicitis, abdominal pain, nausea Critical Care Time: Yes Critical care time in (mins) excluding proc time.: 35 Critical care attestation.: If time is entered above; I have spent that time in minutes in the direct care of this critically ill patient, excluding procedure time. Critical Care Time: 35 minutes ED Disposition Clinical Impression: PID (pelvic inflammatory disease), Failure of outpatient treatment, Abscess, vagina Abdominal pain Qualifiers: Abdominal location: right lower quadrant Qualified Code(s): R10.31 - Right lower quadrant pain Nausea & vomiting Qualifiers: Vomiting type: unspecified Vomiting Intractability: non-intractable Qualified Code(s): R11.2 - Nausea with vomiting, unspecified Disposition: 09 OP ADMIT IP TO THIS HOSP Is pt being admited?: Yes Does the pt Need Aspirin: No Condition: Critical Time of Disposition: 02:58
[2020-10-13 23:52] LABS: Basophils % (Auto) 0.3 % (0.0-1.8); Eosinophils # (Auto) 0.1 K/mm3 (0.0-0.4); Eosinophils % (Auto) 1.1 % (0.0-4.3); Hematocrit 30.6 % (30.3-42.9); Hemoglobin 9.6 gm/dl (10.1-14.3); Lymphocytes # (Auto) 2.5 K/mm3 (1.2-5.4); Mean Corpuscular HGB Conc 31 % (30-34); Mean Corpuscular Volume 83 fl (79-97); Monocytes # (Auto) 0.6 K/mm3 (0.0-0.8); Monocytes % (Auto) 7.9 % (0.0-7.3); Platelet Count 186 K/mm3 (140-440); Red Blood Count 3.68 M/mm3 (3.65-5.03); Red Cell Distribution Width 16.9 % (13.2-15.2)
[2020-10-14 00:25] LABS: Alanine Aminotransferase 7 units/L (7-56); Albumin 4.1 g/dL (3.9-5); Blood Urea Nitrogen 12 mg/dL (7-17); Calcium 9.2 mg/dL (8.4-10.2); Hemolysis Index 1
[2020-10-14 00:26] LABS: BUN/Creatinine Ratio 20; Bilirubin,Direct < 0.2 mg/dL (0-0.2)
[2020-10-14] MEDS ORDERED: ONDANSETRON 4 MG/2 ML INJ ONE (01:15)
--- NOTE | 2020-10-14 01:25 | Cat Scan Report ---
CT ABDOMEN AND PELVIS WITH CONTRAST INDICATION / CLINICAL INFORMATION: Abdominal Pain. TECHNIQUE: Axial CT images were obtained through the abdomen and pelvis after 100 cc of Omnipaque [address] scans at this location are performed using CT dose reduction for [facility] by means of automated exposure control. COMPARISON: None available. FINDINGS: LOWER CHEST: No significant abnormality. LIVER: No significant abnormality. GALLBLADDER: No significant abnormality. BILE DUCTS: No significant abnormality. PANCREAS: No significant abnormality. SPLEEN: No significant abnormality. ADRENALS: No significant abnormality. RIGHT KIDNEY / URETER: No significant abnormality. LEFT KIDNEY / URETER: No significant abnormality. STOMACH / SMALL BOWEL: No significant abnormality. COLON: No significant abnormality. APPENDIX: No significant abnormality. PERITONEUM: No free fluid. No free air. No fluid collection. LYMPH NODES: No significant adenopathy. AORTA / ARTERIES: No significant abnormality. IVC / VEINS: No significant abnormality. URINARY BLADDER: No significant abnormality. REPRODUCTIVE ORGANS: There is a collection of fluid and air along the right aspect of the vagina conc erning for abscess involving the wall of the vagina this collection measures approximately 2.5 x 1.6 cm. ADDITIONAL FINDINGS: None. SKELETAL SYSTEM: No significant abnormality. IMPRESSION: 1. There is a fluid collection along the right wall of the vagina which contains a few bubbles of air concerning for an abscess in the wall of the vagina. Signer Name: Caleb Hummel MD Signed: 10/14/2020 1:21 AM Workstation Name: [id number]
[2020-10-14] MEDS ORDERED: cefTRIAXone/NS 2 GM/100 ML 2 GM/100 ML BAG IV ONE (03:01)
[2020-10-14] MEDS ORDERED: DOXYCYCLINE HYCLATE 100 MG in SODIUM CHLORIDE 0.9% 250ML 250 ML IV ONE (03:01)
[2020-10-14] MEDS ORDERED: methylPREDNISolone Sod Succinate 125 MG/2 ML INJ IV ONE (03:03)
[2020-10-14] MEDS ORDERED: HYDROmorphone 2 MG/1 ML INJ IV ONE (03:19)
[2020-10-14] MEDS ORDERED: ONDANSETRON 4 MG/2 ML INJ IV ONE ×2 (03:25→04:42)
[2020-10-14] MEDS ORDERED: KETOROLAC 30 MG/1 ML INJ IV ONE (06:49)
[2020-10-14 08:32] VITALS: BP 143/68
[2020-10-14] MEDS ORDERED: IBUPROFEN 800 MG TAB PO PRN (08:52)
--- NOTE | 2020-10-14 12:27 | History and Physical Report ---
History of Present Illness Date of examination: 10/14/20 Date of admission: 10/14/20 03:03 Chief complaint: I'm in pain History of present illness: Pt is a 30 year old who presents to the ED with ongoing pelvic pain worse in the rlq. Pt was treated prior at [facility] and was given Zithromax, Doxycycline and Flagyl. SHe states that after intercourse on , the pain started again and she passed out at work. Pt also states that was supposed to be seen at her [facility] [employer] ([employer] on Friday but did not make the appointment. CT ordered in the ED showed a small vaginal abscess and the ED doctor thought it relevant enough to admit her for IV medication. Pt is also complaining of vaginal odor that occurs after intercourse. Pt is comfortable now and pain is well controlled. Past History Past Medical History: seizure Past Surgical History: section [employer] REPA[employer]ER History: trichomonas - Obstetrical History : 9 Para: 7 Medications and Allergies Allergies Allergy/AdvReac Type Severity Reaction Status Date / Time ceftriaxone [From Rocephin] Allergy Itching Verified 10/14/20 03:02 morphine Allergy Shortness Verified 08/10/20 09:31 of Breath turbutaline Allergy Shortness Uncoded 10/11/17 09:53 of Breath Home Medications Medication Instructions Recorded Confirmed Last Taken Type Albuterol Sulfate [Ventolin HFA] 1 - 2 puff IH Q6H PRN 01/16/18 04/26/18 Unknown History Ferrous Sulfate [Iron 325 MG] 325 mg PO DAILY 01/16/18 04/26/18 Unknown History Betamet Acet/Betamet Na pH 12 mg IM Q24HR vial 03/30/18 04/26/18 Unknown Rx [Celestone Soluspan] Vit-Fe Fumar-FA [ 1 each PO QDAY tablet 03/30/18 04/26/18 Unknown Rx Vitamin] lamoTRIgine [LaMICtal] 25 mg PO HS 04/26/18 04/26/18 04/25/18 20:00 History Amoxicillin [Trimox CAP] 500 mg PO BID #20 capsule 01/25/19 Unknown Rx Amoxicillin [Trimox] 500 mg PO BID 10 Days #40 capsule 09/04/19 Unknown Rx Albuterol Mdi (or & Nicu Only) 2 puff IH QID PRN #8.5 gram 01/08/20 Unknown Rx [ProAir HFA Inhaler] Ibuprofen [Motrin 800 MG tab] 800 mg PO Q8HR PRN #20 tablet 01/08/20 Unknown Rx Phenytoin [Dilantin] 300 mg PO QHS #90 capsule 01/08/20 Unknown Rx levETIRAcetam [Keppra TAB] 500 mg PO BID #60 tablet 01/08/20 Unknown Rx metroNIDAZOLE [Flagyl] 500 mg PO Q12HR #14 tab 01/08/20 Unknown Rx Albuterol Sulfate [Proair 90 mcg IH Q4HR PRN #2 aer.pow.ba 02/02/20 Unknown Rx Respiclick] Chlorhexidine Mouthwash [Peridex] 15 ml MM BID #1 bottle 02/02/20 Unknown Rx Magnesium Oxide 400 mg PO QDAY #15 tablet 02/02/20 Unknown Rx Metoclopramide [Reglan] 10 mg PO Q6HR PRN #15 tab 02/02/20 Unknown Rx levETIRAcetam [Keppra TAB] 1,500 mg PO BID #120 tablet 02/02/20 Unknown Rx Acetaminophen/Codeine [Tylenol 1 tab PO Q8H PRN #8 tab 06/04/20 Unknown Rx /Codeine # 3 tab] Clindamycin [Clindamycin CAP] 300 mg PO Q6H 10 Days #40 capsule 06/04/20 Unknown Rx Fluconazole (Nf) [Diflucan TAB] 150 mg PO ONCE #1 tablet 06/04/20 Unknown Rx Naproxen [Naprosyn] 500 mg PO BID #20 tablet 08/10/20 Unknown Rx methOCARBAMOL [Robaxin TAB] 500 mg PO Q8HR PRN #20 tablet 08/10/20 Unknown Rx HYDROcodone/APAP 5-325 [[place] 1 each PO Q6HR PRN #15 tablet 10/14/20 Unknown Rx 5/325] Ibuprofen [Motrin] 800 mg PO Q8HR PRN #40 tablet 10/14/20 Unknown Rx Active Meds: Active Medications Ibuprofen (Ibuprofen 800 Mg Tab) 800 mg PO Q8H PRN PRN Reason: Pain, Mild (1-3) Review of Systems All systems: negative Genitourinary: leakage of fluid, pelvic pain - Vital Signs Vital signs: Vital Signs Temp Pulse Resp BP Pulse Ox 98.1 F 64 18 124/78 100 04/02/21 21:27 10/13/20 21:27 10/13/20 21:27 10/13/20 21:27 10/13/20 21:27 Temp Pulse Resp BP Pulse Ox 98.2 F 57 L 18 143/68 100 10/14/20 08:32 10/14/20 08:32 10/14/20 08:32 10/14/20 08:32 10/14/20 08:32 - Physical Exam Breasts: Positive: deferred Cardiovascular: Regular rate, Normal S1, Normal S2 Lungs: Positive: Clear to auscultation, Normal air movement Abdomen: Positive: normal appearance, soft, normal bowel sounds Genitourinary (Female): Positive: normal external genitalia, normal perenium Cervix: Positive: discharge (copious) Results Result Diagrams: 10/13/20 23:10 10/13/20 23:10 Abnormal lab results 10/13/20 Range/Units 23:10 Hgb 9.6 L (10.1-14.3) gm/dl MCH 26 L (28-32) pg RDW 16.9 H (13.2-15.2) % [place] % (Auto) 7.9 H (0.0-7.3) % All other labs normal. Assessment and Plan Pt here with pelvic pain that has been intermittent for 2 years since her c- section with recent exacerbations. Pt also has small vaginal abcess. Pt has been on antibiotics for the last 2 weeks. Pt advised that she should follow up in the office for full workup. Pt to be discharged to home with pain meds.
--- NOTE | 2020-10-14 12:44 | Discharge Summary ---
Providers - Providers Date of Admission: 10/14/20 03:03 Date of discharge: 10/14/20 Attending physician: LATOYA WILLIS [facility] Reason for admission: other Hospital course: improved Condition at discharge: Stable Disposition: [id number] TO HOME OR SELFCARE Plan - Discharge Medications Prescriptions: Ibuprofen [Motrin] 800 mg PO Q8HR PRN #40 tablet PRN Reason: Pain, Mild (1-3) HYDROcodone/APAP 5-325 [[place] 5/325] 1 each PO Q6HR PRN #15 tablet PRN Reason: Pain - Provider Discharge Summary Activity: routine, no sex for 6 weeks Diet: routine Instructions: routine Additional instructions: [] Smoking cessation referral if applicable(refer to patient education folder for contact #) [] Refer to [facility]'s [facility] Booklet Call your doctor immediately for: * Fever > 100.5 * Heavy vaginal bleeding ( >1 pad per hour) * Severe persistent headache * Shortness of breath * Reddened, hot, painful area to leg or breast * Drainage or odor from incision. * Keep incision clean and dry at all times and follow doctor's instructions regarding bathing/showering - Follow up plan Follow up: WOO ZUÑIGA MD [Staff Physician] - 7 Days
== END 2020-10-14 13:30 | disposition home or self-care (01) ==
LOC: ED 20:10 → OB 10-14 03:03
PROVIDERS: ADMIT Obstetrics & Gynecology; ATTEND Obstetrics & Gynecology
DX: N76.0 Acute vaginitis (principal); N73.9 Female pelvic inflammatory disease, unspecified; R10.2 Pelvic and perineal pain; Z98.891 History of uterine scar from previous surgery
CPT/HCPCS: 36415; 74177; 80048; 80076; 81001; 81025; 84703; 85025; 87210; 87591; 96361; 96365; 96367; 96375; 96376; 99291; G0378; J0696; J1170; J1885; J2405; J2930; J7030; J7050; Q9967